=== PATIENT | female | born 1935 | race Caucasian/White ===

== ENCOUNTER → 2019-03-30 13:53 | Outpatient (CLI) | payer MEDICARE, OTHER, SELFPAY | PROVIDERS: PCP Nurse Practitioner; Visit Provider Family Medicine | DX: S31.109A Unspecified open wound of abdominal wall, unspecified quadrant without penetration into peritoneal cavity, initial encounter (principal); I10 Essential (primary) hypertension | CPT/HCPCS: 11042; 99203; 99212 ==

== ENCOUNTER → 2019-04-06 14:06 | Outpatient (CLI) | payer MEDICARE, OTHER, SELFPAY | PROVIDERS: PCP Nurse Practitioner; Visit Provider Family Medicine | DX: S31.105A Unspecified open wound of abdominal wall, periumbilic region without penetration into peritoneal cavity, initial encounter (principal); C56.2 Malignant neoplasm of left ovary | CPT/HCPCS: 11042 ==

== ENCOUNTER → 2019-04-07 11:47 | Outpatient (CLI) | payer MEDICARE, OTHER, SELFPAY ==
[2019-04-07 13:25] LABS: Thyroid Stimulating Hormone 3.76 uIU/mL (0.47-4.68)
== END ==
PROVIDERS: PCP Nurse Practitioner; Visit Provider Nurse Practitioner
DX: E03.9 Hypothyroidism, unspecified (principal)
CPT/HCPCS: 36415; 84443

== ENCOUNTER → 2019-04-14 14:24 | Outpatient (CLI) | payer MEDICARE, OTHER, SELFPAY | PROVIDERS: PCP Nurse Practitioner; Visit Provider Family Medicine | DX: S31.105A Unspecified open wound of abdominal wall, periumbilic region without penetration into peritoneal cavity, initial encounter (principal); C56.2 Malignant neoplasm of left ovary | CPT/HCPCS: 11042 ==

== ENCOUNTER → 2019-04-25 12:56 | Outpatient (CLI) | payer MEDICARE, OTHER, SELFPAY | PROVIDERS: PCP Nurse Practitioner; Visit Provider Family Medicine | DX: S31.109A Unspecified open wound of abdominal wall, unspecified quadrant without penetration into peritoneal cavity, initial encounter (principal); C56.2 Malignant neoplasm of left ovary | CPT/HCPCS: 99212 ==

== ENCOUNTER → 2019-05-22 11:04 | Outpatient (CLI) | payer MEDICARE, OTHER, SELFPAY ==
[2019-05-22 11:47] LABS: Add Manual Diff / Slide Review NO; Basophils Absolute Auto 100 /uL (0-100); Basophils Percent Auto 0.8 % (0-2); Eosinophils Absolute Auto 200 /uL (0-450); Eosinophils Percent Auto 2.6 % (2-4); Hematocrit 39.5 % (36-46); Hemoglobin 13.3 g/dL (12.0-16.0); Lymphocytes Absolute Auto 1100 /uL (1100-4500); Lymphocytes Percent Auto 16.5 % (25-40); Mean Corpuscular HGB Conc 33.7 % (30-36); Mean Corpuscular Hemoglobin 28.6 PG (26-34); Mean Corpuscular Volume 84.9 fL (80-100); Monocytes Absolute Auto 500 /uL (0-900); Monocytes Percent Auto 8.1 % (3-14); Neutrophils Absolute Auto 4800 /uL (1500-7000); Platelet Count 449 X10^3/uL (150-400); Red Blood Cell Count 4.65 X10^6/uL (4.0-5.2); Red Cell Distribution Width 14.1 % (11.6-14.8); White Blood Cell Count 6.7 X10^3/uL (4.5-11.0)
[2019-05-22 12:04] LABS: Cholesterol 184 mg/dL (140-199); HDL Cholesterol 55 mg/dL (40-60); LDL Cholesterol Calculated 91 mg/dL (<100); Triglycerides 192 mg/dL (35-150)
[2019-05-22 12:05] LABS: Alanine Aminotransferase 16 IU/L (9-52); Albumin 4.5 g/dL (3.5-5.0); Albumin Globulin Ratio 1.6 (1.0-2.8); Alkaline Phosphatase 61 U/L (38-126); Aspartate Aminotransferase 19 IU/L (14-36); BUN Creatinine Ratio 24.3 (6-22); Bilirubin Total 0.6 mg/dL (0.2-1.3); Blood Urea Nitrogen 17 mg/dL (7-17); Calcium 10.6 mg/dL (8.4-10.2); Carbon Dioxide 29 mmol/L (22-32); Chloride 102 mmol/L (98-107); Estimated Glomerular Filt Rate > 60.0 mL/min (>60); Globulin 2.8 g/dL (1.7-4.1); Glucose 96 mg/dL (80-110); HEMOLYSIS < 15 (0-50); Potassium 5.1 mmol/L (3.4-5.1); Sodium 140 mmol/L (137-145); Total Protein 7.3 g/dL (6.3-8.2)
[2019-05-22 12:36] LABS: Cancer Antigen 125 441 U/mL (0-35)
[2019-05-22 15:19] LABS: Creatinine Urine Random 46.4 mg/dL
[2019-05-22 15:24] LABS: Microalbumi Creatinin Ratio Ur 17.2 ug/mg CR (<30); Microalbumin Urine Random 0.8 mg/dL (0-1.6)
[2019-05-24 10:53] LABS: Fecal Immunochemical Test NOT DETECTED (NOT DETECTED)
== END ==
PROVIDERS: Internal Medicine Hematology & Oncology; PCP Nurse Practitioner; Visit Provider Nurse Practitioner
DX: E78.5 Hyperlipidemia, unspecified (principal); I10 Essential (primary) hypertension; Z12.11 Encounter for screening for malignant neoplasm of colon; C56.9 Malignant neoplasm of unspecified ovary
CPT/HCPCS: 36415; 80053; 80061; 82043; 82274; 82570; 85025; 86304

== ENCOUNTER → 2019-05-23 10:35 | Outpatient (CLI) | payer MEDICARE, OTHER, SELFPAY ==
--- NOTE | 2019-05-23 12:19 | DI.CT.S_ITS ---
PROCEDURE: CT CHEST ABD PEL W CON INDICATIONS: OVARIAN CANCER TECHNIQUE: After the administration of oral and intravenous contrast, 5 mm thick sections acquired from the lung apices to the symphysis. 5 mm coronal and sagittal reformats were performed, with additional 7 mm coronal MIP reformats through the lungs. For radiation dose reduction, the following was used: automated exposure control, adjustment of mA and/or kV according to patient size. COMPARISON: [facility], US, US ABDOMEN COMPLETE, 02/03/2019, 11:34. [facility], CT, CT CHEST WITH CONTRAST, 03/08/2019, 15:54. [facility], CT, CT ABDOMEN PELVIS WITH CONTRAST, 02/14/2019, 13:15. FINDINGS: Image quality: Excellent. CHEST: Lungs and pleura: There is a 1.5 x 2.3 cm irregular groundglass density in the right middle lobe, unchanged in size. There are subpleural scars in the lingula anteriorly likely secondary to post radiation change. No pleural effusions or pneumothorax. Central and peripheral airways appear patent and normal in caliber. Mediastinum: Heart size is normal. No pericardial effusion. No mediastinal or hilar adenopathy by size criteria. Thoracic aorta and central pulmonary arteries are normal in size. Esophagus is normal in caliber. A small hiatal hernia is present. Chest wall: No axillary or supraclavicular adenopathy by size criteria. Thyroid gland is normal. There is left mastectomy. ABDOMEN: Solid organs: Liver is normal in size and enhancement. The liver demonstrates a subtle nodular contour. Gallbladder is normal. Biliary system is non dilated. Pancreas enhances normally. Spleen contains multiple low density nodules. Several nodules are increased in size. For example the largest nodule measures 1.6 cm on the current examination, previously 1.3 cm. No adrenal nodules. Kidneys demonstrate normal size and enhancement, without hydronephrosis. Peritoneum and bowel: Bowel loops demonstrate normal wall thickness and caliber. No free air. There is a moderate amount of ascites, slightly decreased compared to 02/14/2019. There is a 6 cm omental nodule (series 2 image 83), new since the last exam. Nodes and vessels: No retroperitoneal or mesenteric adenopathy by size criteria. Aorta and inferior vena cava are normal in size. There is moderate to severe atherosclerosis. 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 Miscellaneous: No ventral hernias. There is a fluid collection in the lower anterior abdominal wall extending from the midline toward the right measuring 3.4 x 7.1 x 3.3 cm, most likely a postoperative seroma. There is a nerve stimulator in the right artery. PELVIS: Genitourinary: Post surgical changes with hysterectomy. No large pelvic mass has been surgically resected. Bladder wall thickness is normal. Miscellaneous: No inguinal hernias or adenopathy. Bones: No suspicious bony lesions. No vertebral body compression fractures. There are degenerative changes in thoracic and lumbar spine. IMPRESSION: 1. Interval hysterectomy and surgical resection of a large pelvic mass. 2. Persistent but slightly decrease in moderate amount of ascites. 3. A small new omental nodule is identified, suspicious for metastatic disease. 4. Multiple low density nodules are seen spleen. Several nodules appear increasing in size, concerning for metastatic disease. 5. A postoperative seroma is suspected in the right lower anterior abdominal wall. A differential diagnosis is a postoperative abscess. Recommend clinical correlation. 6. Stable 1.5 x 2.3 cm irregular groundglass density in the right middle lobe. Dictated by: Carlos Olivas M.D. on 05/23/2019 at 17:44 Approved by: Carlos Olivas M.D. on 05/23/2019 at 18:26
== END ==
PROVIDERS: PCP Nurse Practitioner; Visit Provider Internal Medicine Hematology & Oncology
DX: C56.9 Malignant neoplasm of unspecified ovary (principal); R18.8 Other ascites; D73.9 Disease of spleen, unspecified; R91.1 Solitary pulmonary nodule; K44.9 Diaphragmatic hernia without obstruction or gangrene; Z90.710 Acquired absence of both cervix and uterus; Z90.12 Acquired absence of left breast and nipple
CPT/HCPCS: 71260; 74177; Q9967

== ENCOUNTER 2019-05-30 08:56 | Day surgery (SDC) | payer MEDICARE, OTHER, SELFPAY ==
[2019-05-22 11:22] VITALS: BMI 25.2
[2019-05-30] VITALS (7 sets, daily range): BP systolic 111–133; BP diastolic 64–78; PULSE 58–62; RESP 11–18; TEMP 35.9–36.4; O2SAT 93–96; BMI 25.2
--- NOTE | 2019-05-30 | DI.RAD.S_ITS ---
PROCEDURE: XR CHEST 1V INDICATIONS: s/p port TECHNIQUE: One view of the chest was acquired. COMPARISON: [facility], CR, XR CHEST 2 VIEWS, 02/06/2019, 11:09. [facility], CT, CT CHEST ABD PEL W CON, 05/23/2019, 11:48. FINDINGS: Surgical changes and devices: Newly placed right-sided Port-A-Cath within the right IJ with the tip remaining at the middle third of the SVC. Lungs and pleura: No pneumothorax. Lungs are clear. No pleural effusion. Mediastinum: Mediastinal contours appear normal. Heart size is normal. Tortuous aorta. Bones and chest wall: No suspicious bony lesions. Overlying soft tissues appear unremarkable. IMPRESSION: New right Port-A-Cath with the tip terminating in the middle third of the SVC. No pneumothorax. Dictated by: Nikita Corrales M.D. on 05/30/2019 at 11:45 Approved by: Nikita Corrales M.D. on 05/30/2019 at 11:49
--- NOTE | 2019-05-30 09:08 | PM.PREOP ---
Pre-operative Note Interval Note History & Physical reviewed/Exam performed by Physician: Yes Changes to H&P: No
[2019-05-30] MEDS: LACTATED RINGERS 1,000 ML 42 ML IV (09:43)
[2019-05-30] MEDS: CEFAZOLIN 2 GM/100 ML FROZ.PIGGY IV (09:54)
--- NOTE | 2019-05-30 10:14 | SUR.OPER ---
Supine on padded OR bed, head on pillow, arm padded and tucked at side, legs uncrossed, safety belt at thigh, tape over blanket over lower legs .
[2019-05-30] MEDS: BUPIVACAINE 0.25% W/ EPI 30 ML VIAL INJ (10:23)
--- NOTE | 2019-05-30 10:38 | PM.OP.1 ---
Operative Date/Time/Diagnoses Date of procedure: 05/30/19 Time of procedure: 10:38 Pre-op diagnosis: Ovarian Cancer Post-op diagnosis: same Procedure & Clinicians Procedure: 1. Ultrasound guided access of Right Internal Jugular Vein 2. Right Internal Jugular Vein Port-a-cath Placement with fluoroscopic guidance and interpretation Same procedure as scheduled: Yes Indications: 84yo F with ovarian cancer and need for chemotherapy. All risks, benefits, and alternatives are discussed and pt wishes to proceed. Surgeon: Tania King Anesthesia Type: General Operative Notes Findings: flushes and draws readily Closure Type: primary Estimated Blood Loss (mL): 5 Procedure in detail: The patient was taken to the operating room and placed in the on the operating table in supine position. Anesthesia was induced without complications. The right neck and chest was prepped and draped in the usual sterile fashion. Using ultrasound guidance, the right internal jugular vein was accessed with an 18 gauge access needle. The guidewire was then placed through the needle and confirmed under fluoroscopic guidance. Using an 11 blade scalpel, a small incision was made in the skin over the needle and the needle was removed. At this point, we turned our attention to creation of a subcutaneous pocket for the port. This was done over the deltopectoral groove on the right chest. The catheter was then attached to the tunneling device and this was tunneled from the port site to the access site. The tunneling device was removed. The sheath and inner dilator were placed over the guidewire and advanced under fluoroscopic guidance. The wire was removed. The catheter was then placed in the sheath and advanced under fluoroscopic guidance until it appeared to sit near the atriocaval junction. The sheath was then removed. The catheter was then attached to the port and secured into place. Two 0-Ethibond sutures were placed through the deep subcutaneous tissues and the port sat nicely in place in the subcutaneous pocket. One last picture was taken with fluoroscopy which showed the catheter to be in good position above the atriocaval junction. Of note, a small hematoma was noted in the neck shortly after initial stick and was watched through the case with no enlargement; patient was still on her ASA and oozed from all cuts through the case. The catheter was checked to ensure that it flushes and draws readily. It was heparin-locked. 3-0 vicryl was used to re-approximate the deep subcutaneus tissues in an interrupted fashion. The skin was closed using 4-0 monocryl in a running subcuticular fashion. The area was cleaned and dried. Skin glue was placed over the incision and the access site. The patient tolerated the procedure well. The patient was awakened and taken to the PACU in stable condition. All counts were correct at the end of the procedure. Complications: none Condition: stable Disposition: PACU Plan for aftercare: CXR in PACU prior to discharge.
== END 2019-05-30 12:03 | disposition home or self-care (01) ==
PROVIDERS: PCP Nurse Practitioner; Visit Provider Surgery
PROC: (CPT 36561; principal; 2019-05-30 10:45)
DX: C56.9 Malignant neoplasm of unspecified ovary (principal); Z45.2 Encounter for adjustment and management of vascular access device
CPT/HCPCS: 36561; 71045; 76000; C1788; J0690; J1100; J2405; J2704; J3010

== ENCOUNTER → 2019-09-18 15:02 | Outpatient (CLI) | payer MEDICARE, OTHER, SELFPAY ==
[2019-09-25 09:06] LABS: Alanine Aminotransferase 17 IU/L (<35); Albumin 4.2 g/dL (3.5-5.0); Albumin Globulin Ratio 1.8 (1.0-2.8); Alkaline Phosphatase 60 U/L (38-126); Aspartate Aminotransferase 24 IU/L (14-36); Bilirubin Total 0.6 mg/dL (0.2-1.3); Blood Urea Nitrogen 20 mg/dL (7-17); Calcium 9.7 mg/dL (8.4-10.2); Carbon Dioxide 24 mmol/L (22-32); Chloride 102 mmol/L (98-107); Estimated Glomerular Filt Rate > 60.0 mL/min (>60); Globulin 2.4 g/dL (1.7-4.1); Glucose 148 mg/dL (80-110); HEMOLYSIS < 15 (0-50); Sodium 137 mmol/L (137-145); Total Protein 6.6 g/dL (6.3-8.2)
[2019-09-25 09:07] LABS: Add Manual Diff / Slide Review NO; Basophils Absolute Auto 0 /uL (0-100); Basophils Percent Auto 0.9 % (0-2); Eosinophils Absolute Auto 0 /uL (0-450); Eosinophils Percent Auto 0.4 % (2-4); Hematocrit 28.1 % (36-46); Hemoglobin 9.9 g/dL (12.0-16.0); Lymphocytes Absolute Auto 700 /uL (1100-4500); Lymphocytes Percent Auto 25.4 % (25-40); Mean Corpuscular HGB Conc 35.3 % (30-36); Mean Corpuscular Hemoglobin 33.8 PG (26-34); Mean Corpuscular Volume 95.7 fL (80-100); Monocytes Absolute Auto 200 /uL (0-900); Monocytes Percent Auto 7.3 % (3-14); Neutrophils Absolute Auto 1800 /uL (1500-7000); Platelet Count 183 X10^3/uL (150-400); Red Blood Cell Count 2.94 X10^6/uL (4.0-5.2); Red Cell Distribution Width 24.2 % (11.6-14.8); White Blood Cell Count 2.7 X10^3/uL (4.5-11.0)
[2019-09-25 10:12] LABS: Anisocytosis 3+; Polychromasia 2+
[2019-09-25 10:13] LABS: Macrocytosis 2+; Microcytosis 1+
[2019-09-25 10:14] LABS: Poikilocytosis 1+
== END ==
PROVIDERS: Internal Medicine Hematology & Oncology; PCP Nurse Practitioner; Visit Provider Obstetrics & Gynecology
DX: N89.8 Other specified noninflammatory disorders of vagina (principal); R82.90 Unspecified abnormal findings in urine
CPT/HCPCS: 80053; 85025; 87077; 87086; 87186

== ENCOUNTER 2021-02-15 10:18 | Emergency (ER) | payer MEDICARE, OTHER, SELFPAY ==
[2021-02-15] VITALS (15 sets, daily range): BP systolic 104–190; BP diastolic 63–99; PULSE 65–82; RESP 15–28; TEMP 36.4; O2SAT 88–98; BMI 28.3
--- NOTE | 2021-02-15 10:25 | DI.RAD.S_ITS ---
PROCEDURE: XR CHEST 1V INDICATIONS: chest pain TECHNIQUE: One view of the chest was acquired. COMPARISON: [facility], CR, XR CHEST 1V, 05/30/2019, 10:53. FINDINGS: Surgical changes and devices: Unchanged MediPort catheter with tip terminating in the caudal SVC. Lungs and pleura: Lungs are clear. No pleural effusions or pneumothorax. Mediastinum: Mediastinal contours appear normal. Calcification of the aortic knob. Heart size is normal. Bones and chest wall: No suspicious bony lesions. Multiple healed left-sided rib fractures. Degenerative changes of the shoulders and spine. Posttraumatic deformity of the left clavicle. Overlying soft tissues appear unremarkable. IMPRESSION: No acute cardiopulmonary findings. Dictated by: Arturo Laboy M.D. on 02/15/2021 at 10:02 Approved by: Arturo Laboy M.D. on 02/15/2021 at 10:04
--- NOTE | 2021-02-15 10:29 | ED_ITS ---
HPI - Chest Pain General Chief Complaint: Chest Pain Stated Complaint: chest pains Time Seen by Provider: 02/15/21 10:22 Source: patient Mode of arrival: Ambulatory Limitations: no limitations History of Present Illness HPI narrative: Patient is a 86-year-old female with history of breast cancer and left-sided mastectomy and hypertension presenting today with left-sided chest pain. She says it woke her from her sleep around 3:15 a.m. it is in her left armpit. She has sharp shooting pains that last for seconds but they have continued for about 30 minutes or more. She says it hurts when she moves her left arm. She denies shortness of breath. She currently has no pain now. She has never had anything like this in the past. MD complaint: chest pain Onset (ago): hour(s) Duration: intermittent Onset: during rest Pain location: left chest Severity: moderate Quality: sharp Pain radiation: none Relieving factors: nothing Exacerbating factors: nothing Related Data Home Medications Medication Instructions Recorded Confirmed aspirin 81 mg tablet,delayed 81 mg PO DAILY 04/07/19 05/02/20 release cholecalciferol (vitamin D3) 50 2,000 unit PO DAILY 04/07/19 05/02/20 mcg (2,000 unit) capsule vitamin E mixed 400 unit capsule 400 unit PO DAILY cap 04/07/19 05/02/20 diphenhydramine-acetaminophen 1 tab PO BEDTIME PRN 06/05/19 05/02/20 [Tylenol PM Extra Strength] Previous Rx's Medication Instructions Recorded levothyroxine 75 mcg tablet 75 mcg PO DAILY #90 tab 04/12/20 propranolol 60 mg tablet 60 mg PO BID #180 tab 04/12/20 amlodipine 10 mg tablet 5 mg PO DAILY #90 tab 04/18/20 Allergies Allergy/AdvReac Type Severity Reaction Status Date / Time codeine AdvReac Intermediate Nausea and Verified 02/15/21 10:25 Vomiting. Review of Systems Review of Systems ROS Unobtainable: All systems reviewed & are unremarkable except as noted in HPI and below Constitutional Constitutional: Denies chills, Denies fever(s), Denies lethargy and Denies weakness ENT Ears, Nose, Mouth, and Throat: Denies change in voice, Denies vertigo, Denies dizziness, Denies neck pain and Denies sore throat Cardiovascular Cardiovascular: Reports chest pain, Denies irregular heart rhythm, Denies lightheadedness, Denies palpitations, Denies dyspnea, Denies dyspnea on exertion and Denies orthopnea Respiratory Respiratory: Denies cough, Denies dyspnea, Denies dyspnea on exertion and Denies wheezing Gastrointestinal Gastrointestinal: Denies abdominal pain, Denies change in bowel habits, Denies diarrhea, Denies nausea and Denies vomiting Musculoskeletal Musculoskeletal: Denies back pain, Denies myalgias, Denies neck pain and Denies numbness Integumentary/Breasts Skin/Breast: Denies pruritus, Denies erythema, Denies rash and Denies wounds Neurologic Neurologic: Denies vertigo, Denies dizziness, Denies numbness and Denies weakness Endocrine Endocrine: Denies palpitations Allergic/Immunologic Allergic/Immunologic: Denies wheezing Patient History Medical History (Updated 02/15/21 @ 13:47 by Ryanne Tellez RN) Activity intolerance Benign familial tremor (~2009) Bilateral leg pain Breast cancer (~1986) Chicken pox Fatigue Fecal incontinence (~2015) FH: total abdominal hysterectomy and bilateral salpingo-oophorectomy (~03/10/19) Former smoker Hearing loss History of urinary incontinence (~2015) Hypothyroidism (~1989) Measles Mumps Ovarian cyst (~2000) Rubella Tinnitus Trigger finger, left little finger Vertigo Word finding difficulty Surgical History Anesthesia Cataracts, bilateral (~2017) History of ankle surgery (~1990) History of bladder surgery (~2016) History of mastectomy (~1986) History of surgery on right wrist (~2015) Ovarian cancer (~2018) Family History Father History of heart disease Hypertension Hyperlipidemia Mother No problems noted. Sister No problems noted. Grandfather No problems noted. Social History marital status: household members: spouse occupational status: previously employed Smoking Status: Former smoker Tobacco: How many years used: 3 second hand exposure: No alcohol intake: never substance use type: does not use Smoking Status: Former smoker alcohol intake frequency: 0-2 drinks per day Substance Use Type: does not use Exam Initial Vital Signs Initial Vital Signs: Vital Signs Temperature 97.6 F 04/03/21 10:20 Pulse Rate 69 02/15/21 10:20 Respiratory Rate 15 02/15/21 10:20 Blood Pressure 190/85 H 02/15/21 10:20 Pulse Oximetry 95 02/15/21 10:20 GENERAL: Alert well-appearing 86-year-old female and in no acute distress. HEENT: Head atraumatic,EOMI, pupils reactive, face symmetric, moist mucous membranes CARDIOVASCULAR: Regular rate and rhythm without murmurs, rubs or gallops. RESPIRATORY: Breath sounds equal bilaterally, no wheezes rales or rhonchi. ABDOMEN: Soft, nontender. Normoactive bowel sounds all 4 quadrants. No guarding or rebound. EXTREMITIES: Normal range of motion, no clubbing or edema. Neurovascularly intact NEUROLOGICAL: Alert and oriented x4.Normal gait and speech. Cranial nerves II through XII grossly intact. SKIN: Warm, dry, no laceration, no petechiae, no rashes or lesions. Course Orders Ordered: ED Orders 02/15/21 10:25 XR chest 1V Stat EKG-12 Lead Stat 02/15/21 10:30 Complete Blood Count AUTO DIFF Stat Comprehensive Metabolic Panel Stat Lipase Stat Partial Thromboplastin Time Stat Prothrombin Time INR Stat Troponin & CK Cardiac Panel Stat 02/15/21 12:30 Trop I [Troponin I] Stat Discontinued Medications Amlodipine Besylate (Amlodipine 5 Mg Tablet) 10 mg PO NOW ONE Stop: 02/15/21 10:50 Last Admin: 02/15/21 10:57 Dose: 10 mg Documented by: MERVIN Aspirin (Aspirin 81 Mg Chew Tab) 324 mg PO NOW ONE Stop: 02/15/21 10:57 Last Admin: 02/15/21 11:01 Dose: 324 mg Documented by: MERVIN Nitroglycerin (Nitroglycerin 0.4 Mg Sl Tab) 0.4 mg SL NOW ONE Stop: 02/15/21 10:57 Last Admin: 02/15/21 11:00 Dose: 0.4 mg Documented by: MERVIN Propranolol HCl (Propranolol 40 Mg Tablet) 60 mg PO NOW ONE Stop: 02/15/21 10:50 Last Admin: 02/15/21 10:57 Dose: 60 mg Documented by: MERVIN Vital Signs Vital signs: Vital Signs - 8 hr 02/15/21 11:00 02/15/21 11:10 02/15/21 11:21 Pulse Rate 71 82 78 Respiratory Rate 22 28 H Blood Pressure 150/90 H 123/80 120/65 Pulse Oximetry 94 91 96 02/15/21 11:30 02/15/21 11:40 02/15/21 11:50 Pulse Rate 73 73 70 Respiratory Rate 16 25 H 23 Blood Pressure 107/63 104/66 115/69 Pulse Oximetry 96 96 95 02/15/21 12:00 02/15/21 12:16 02/15/21 12:20 Pulse Rate 68 65 69 Respiratory Rate 19 22 Blood Pressure 123/78 132/91 H 117/73 Pulse Oximetry 96 93 97 02/15/21 12:30 02/15/21 12:40 02/15/21 12:50 Pulse Rate 65 66 65 Respiratory Rate 20 24 Blood Pressure 132/70 123/75 139/75 Pulse Oximetry 95 95 94 MDM - Chest Pain Lab Data Attestation: I reviewed the patient's lab results. Result diagrams: 02/15/21 10:30 02/15/21 10:30 Labs: Lab Results 02/15/21 02/15/21 02/15/21 Range/Units 10:30 10:30 10:30 WBC 5.7 (4.5-11.0) X10^3/uL RBC 4.90 (4.0-5.2) X10^6/uL Hgb 14.5 (12.0-16.0) g/dL Hct 42.8 (36-46) % MCV 87.5 (80-100) fL MCH 29.6 (26-34) PG MCHC 33.8 (30-36) % RDW 14.8 (11.6-14.8) % Plt Count 303 (150-400) X10^3/uL Neut % (Auto) 69.8 (50-75) % Lymph % (Auto) 16.2 L (25-40) % Sutter % (Auto) 9.9 (3-14) % Eos % (Auto) 3.2 (2-4) % Baso % (Auto) 0.9 (0-2) % Neut # (Auto) 4000 (5269-5335) /uL Lymph # (Auto) 900 L (4774-2889) /uL Sutter # (Auto) 600 (0-900) /uL Eos # (Auto) 200 (0-450) /uL Baso # (Auto) 100 (0-100) /uL PT 12.3 (10.1-12.7) SECONDS INR 1.1 (0.9-1.3) APTT 39 H (26.4-36.2) SECONDS Sodium 138 (137-145) mmol/L Potassium 4.5 (3.4-5.1) mmol/L Chloride 105 (98-107) mmol/L Carbon Dioxide 26 (22-32) mmol/L BUN 17 (7-17) mg/dL Creatinine 0.66 (0.52-1.04) mg/dL Estimated GFR > 60.0 (>60) mL/min BUN/Creatinine Ratio 25.8 H (6-22) Glucose 114 H (80-110) mg/dL Calcium 10.6 H (8.4-10.2) mg/dL Total Bilirubin 0.7 (0.2-1.3) mg/dL AST 28 (14-36) IU/L ALT 20 (<35) IU/L Alkaline Phosphatase 66 (38-126) U/L Total Creatine Kinase 83 (30-135) U/L CK-MB (CK-2) TNP CK-MB (CK-2) Rel Index TNP Troponin I < 0.012 (0.01-0.034) ng/mL Total Protein 7.7 (6.3-8.2) g/dL Albumin 4.6 (3.5-5.0) g/dL Globulin 3.1 (1.7-4.1) g/dL Albumin/Globulin Ratio 1.5 (1.0-2.8) Lipase 78 (23-300) U/L // Range/Units 12:30 WBC (4.5-11.0) X10^3/uL RBC (4.0-5.2) X10^6/uL Hgb (12.0-16.0) g/dL Hct (36-46) % MCV (80-100) fL MCH (26-34) PG MCHC (30-36) % RDW (11.6-14.8) % Plt Count (150-400) X10^3/uL Neut % (Auto) (50-75) % Lymph % (Auto) (25-40) % Sutter % (Auto) (3-14) % Eos % (Auto) (2-4) % Baso % (Auto) (0-2) % Neut # (Auto) (6403-5241) /uL Lymph # (Auto) (9291-2631) /uL Sutter # (Auto) (0-900) /uL Eos # (Auto) (0-450) /uL Baso # (Auto) (0-100) /uL PT (10.1-12.7) SECONDS INR (0.9-1.3) APTT (26.4-36.2) SECONDS Sodium (137-145) mmol/L Potassium (3.4-5.1) mmol/L Chloride (98-107) mmol/L Carbon Dioxide (22-32) mmol/L BUN (7-17) mg/dL Creatinine (0.52-1.04) mg/dL Estimated GFR (>60) mL/min BUN/Creatinine Ratio (6-22) Glucose (80-110) mg/dL Calcium (8.4-10.2) mg/dL Total Bilirubin (0.2-1.3) mg/dL AST (14-36) IU/L ALT (<35) IU/L Alkaline Phosphatase (38-126) U/L Total Creatine Kinase (30-135) U/L CK-MB (CK-2) CK-MB (CK-2) Rel Index Troponin I < 0.012 (0.01-0.034) ng/mL Total Protein (6.3-8.2) g/dL Albumin (3.5-5.0) g/dL Globulin (1.7-4.1) g/dL Albumin/Globulin Ratio (1.0-2.8) Lipase (23-300) U/L Imaging Data Chest x-ray: Radiologist's Impression: PROCEDURE: XR CHEST 1V INDICATIONS: chest pain TECHNIQUE: One view of the chest was acquired. COMPARISON: [facility], CR, XR CHEST 1V, 05/30/2019, 10:53. FINDINGS: Surgical changes and devices: Unchanged MediPort catheter with tip terminating in the caudal SVC. Lungs and pleura: Lungs are clear. No pleural effusions or pneumothorax. Mediastinum: Mediastinal contours appear normal. Calcification of the aortic knob. Heart size is normal. Bones and chest wall: No suspicious bony lesions. Multiple healed left-sided rib fractures. Degenerative changes of the shoulders and spine. Posttraumatic deformity of the left clavicle. Overlying soft tissues appear unremarkable. IMPRESSION: No acute cardiopulmonary findings. Dictated by: Arturo Laboy M.D. on 02/15/2021 at 10:02 ECG Data Attestation: I personally reviewed and interpreted this ECG as follows: Prior ECG tracings: not available for review Interpretation: Normal sinus rhythm rate 62 p.r. interval 180 QRS [address] changes or T-wave inversions EKG 2. Sinus rhythm rate 63 p.r. interval [address] changes or T-wave inversions similar to previous EKG MDM Narrative Medical decision making narrative: Patient's pain is sharp stabbing in nature worse with arm movement is not consistent with cardiac pain. At this time she has 2-troponins EKGs are reassuring. I recommend outpatient follow-up and possible stress test. Discharge Plan Departure Patient Disposition: Home Clinical Impression: Atypical chest pain, Activity intolerance Instructions: DI for Atypical Chest Pain Activity Restrictions/Additional Instructions: *You have been diagnosed with atypical chest pain *What to do: At this time you may require further cardiac testing with her primary care provider but you do not need to stay in the hospital to have this done. His however if her pain changes or worsens at any time please return to the emergency department *Continue to take medications as directed *Follow up with your primary care provider in 2-3 days *Return to ER if you should have increasing chest pain shortness of breath or any new, worsening or concerning symptoms Prescriptions: No Action propranolol 60 mg tablet 60 mg PO BID Qty: 180 RF: 3 levothyroxine 75 mcg tablet 75 mcg PO DAILY Qty: 90 RF: 3 aspirin 81 mg tablet,delayed release (DR/EC) 81 mg PO DAILY RF: 0 cholecalciferol (vitamin D3) 2,000 unit capsule 2,000 unit PO DAILY RF: 0 vitamin E mixed 400 unit capsule 400 unit PO DAILY RF: 0 amlodipine 10 mg tablet 5 mg PO DAILY Qty: 90 RF: 3 diphenhydramine-acetaminophen [Tylenol PM Extra Strength] 25-500 mg Tablet 1 tab PO BEDTIME PRN (Reason: Pain (Scale Score 1-3)) RF: 0 Referrals: Ayanna Otero ARNP [Primary Care Provider] -
[2021-02-15 10:40] LABS: Add Manual Diff / Slide Review NO; Basophils Absolute Auto 100 /uL (0-100); Basophils Percent Auto 0.9 % (0-2); Eosinophils Absolute Auto 200 /uL (0-450); Eosinophils Percent Auto 3.2 % (2-4); Hematocrit 42.8 % (36-46); Hemoglobin 14.5 g/dL (12.0-16.0); Lymphocytes Absolute Auto 900 /uL (1100-4500); Lymphocytes Percent Auto 16.2 % (25-40); Mean Corpuscular HGB Conc 33.8 % (30-36); Mean Corpuscular Hemoglobin 29.6 PG (26-34); Mean Corpuscular Volume 87.5 fL (80-100); Monocytes Absolute Auto 600 /uL (0-900); Monocytes Percent Auto 9.9 % (3-14); Neutrophils Absolute Auto 4000 /uL (1500-7000); Neutrophils Percent Auto 69.8 % (50-75); Platelet Count 303 X10^3/uL (150-400); Red Cell Distribution Width 14.8 % (11.6-14.8); White Blood Cell Count 5.7 X10^3/uL (4.5-11.0)
[2021-02-15 10:48] LABS: INR 1.1 (0.9-1.3); Prothrombin Time 12.3 SECONDS (10.1-12.7)
[2021-02-15 10:51] LABS: Alanine Aminotransferase 20 IU/L (<35); Albumin 4.6 g/dL (3.5-5.0); Albumin Globulin Ratio 1.5 (1.0-2.8); Alkaline Phosphatase 66 U/L (38-126); Aspartate Aminotransferase 28 IU/L (14-36); BUN Creatinine Ratio 25.8 (6-22); Bilirubin Total 0.7 mg/dL (0.2-1.3); Blood Urea Nitrogen 17 mg/dL (7-17); Calcium 10.6 mg/dL (8.4-10.2); Carbon Dioxide 26 mmol/L (22-32); Chloride 105 mmol/L (98-107); Creatine Kinase 83 U/L (30-135); Estimated Glomerular Filt Rate > 60.0 mL/min (>60); Globulin 3.1 g/dL (1.7-4.1); Glucose 114 mg/dL (80-110); HEMOLYSIS 29 (0-50); Lipase 78 U/L (23-300); PTT Partial Thromboplastin Tim 39 SECONDS (26.4-36.2); Potassium 4.5 mmol/L (3.4-5.1); Sodium 138 mmol/L (137-145); Total Protein 7.7 g/dL (6.3-8.2)
[2021-02-15] MEDS: PROPRANOLOL 40 MG TABLET 60 MG PO (10:57)
[2021-02-15] MEDS: AMLODIPINE 5 MG TABLET 10 MG PO (10:57)
[2021-02-15] MEDS: NITROGLYCERIN 0.4 MG SL TAB SL (11:00)
[2021-02-15] MEDS: ASPIRIN 81 MG CHEW TAB 324 MG PO (11:01)
[2021-02-15 11:02] LABS: Troponin I < 0.012 ng/mL (0.01-0.034)
[2021-02-15 13:05] LABS: Troponin I < 0.012 ng/mL (0.01-0.034)
== END 2021-02-15 13:33 | disposition home or self-care (01) ==
PROVIDERS: Emergency Provider Emergency Medicine; Family Provider Nurse Practitioner; PCP Nurse Practitioner
DX: R07.89 Other chest pain (principal); Z85.3 Personal history of malignant neoplasm of breast; Z90.12 Acquired absence of left breast and nipple
CPT/HCPCS: 36415; 71045; 80053; 82550; 83690; 84484; 85025; 85610; 85730; 93005; 99284; 99285

== ENCOUNTER 2022-01-22 13:02 | Emergency (ER) | payer MEDICARE, OTHER, SELFPAY ==
[2022-01-22] VITALS (11 sets, daily range): BP systolic 152–199; BP diastolic 67–102; PULSE 77–85; RESP 14–20; TEMP 36.3; O2SAT 92–96; BMI 28.3
--- NOTE | 2022-01-22 13:09 | DI.RAD.S_ITS ---
PROCEDURE: XR CHEST 1V INDICATIONS: chest pain TECHNIQUE: One view of the chest was acquired. COMPARISON: [facility], CR, XR CHEST 1V, 05/30/2019, 10:53. [facility], CR, XR CHEST 1V, 02/15/2021, 10:37. FINDINGS: Surgical changes and devices: None. Lungs and pleura: No pleural effusions or pneumothorax. There is elevation of the left hemidiaphragm and left basilar atelectasis. Mediastinum: Mediastinal contours appear normal. Heart size is enlarged. The aorta has atherosclerotic calcifications. Bones and chest wall: No suspicious bony lesions. Overlying soft tissues appear unremarkable. IMPRESSION: Left basilar atelectasis and elevation of the left hemidiaphragm. Dictated by: Julio César Astudillo M.D. on 01/22/2022 at 14:39 Approved by: Julio César Astudillo M.D. on 01/22/2022 at 14:41
[2022-01-22 13:38] LABS: Add Manual Diff / Slide Review NO; Basophils Absolute Auto 100 /uL (0-100); Basophils Percent Auto 0.7 % (0-2); Eosinophils Absolute Auto 100 /uL (0-450); Eosinophils Percent Auto 1.2 % (2-4); Hematocrit 43.2 % (36-46); Hemoglobin 14.5 g/dL (12.0-16.0); Lymphocytes Absolute Auto 700 /uL (1100-4500); Lymphocytes Percent Auto 8.3 % (25-40); Mean Corpuscular HGB Conc 33.5 % (30-36); Mean Corpuscular Hemoglobin 29.5 PG (26-34); Mean Corpuscular Volume 88.2 fL (80-100); Monocytes Absolute Auto 500 /uL (0-900); Monocytes Percent Auto 6.4 % (3-14); Neutrophils Absolute Auto 6900 /uL (1500-7000); Neutrophils Percent Auto 83.4 % (50-75); Platelet Count 372 X10^3/uL (150-400); Red Cell Distribution Width 14.3 % (11.6-14.8); White Blood Cell Count 8.3 X10^3/uL (4.5-11.0)
[2022-01-22 13:44] LABS: INR 1.1 (0.9-1.3)
[2022-01-22 13:47] LABS: PTT Partial Thromboplastin Tim 36 SECONDS (26.4-36.2)
[2022-01-22 14:21] LABS: Alanine Aminotransferase 20 IU/L (<35); Albumin 4.5 g/dL (3.5-5.0); Albumin Globulin Ratio 1.4 (1.0-2.8); Alkaline Phosphatase 61 U/L (38-126); Aspartate Aminotransferase 33 IU/L (14-36); BUN Creatinine Ratio 27.8 (6-22); Bilirubin Total 0.8 mg/dL (0.2-1.3); Blood Urea Nitrogen 20 mg/dL (7-17); Calcium 9.9 mg/dL (8.4-10.2); Carbon Dioxide 29 mmol/L (22-32); Chloride 104 mmol/L (98-107); Creatine Kinase 136 U/L (30-135); Estimated Glomerular Filt Rate > 60.0 mL/min (>60); Globulin 3.3 g/dL (1.7-4.1); Glucose 132 mg/dL (80-110); HEMOLYSIS 40 (0-50); Lipase 95 U/L (23-300); Magnesium 2.2 mg/dL (1.6-2.3); Potassium 4.2 mmol/L (3.4-5.1); Sodium 138 mmol/L (137-145); Total Protein 7.8 g/dL (6.3-8.2)
[2022-01-22 14:32] LABS: Troponin I < 0.012 ng/mL (0.01-0.034)
[2022-01-22 14:36] LABS: CKMB % Relative Index 2.5 % (1.5-5.0); Creatine Kinase MB 3.45 ng/mL (<2.37)
--- NOTE | 2022-01-22 16:54 | ED_ITS ---
HPI - Chest Pain General Chief Complaint: Chest Pain Stated Complaint: Chest pains Time Seen by Provider: 01/22/22 16:50 Source: patient Mode of arrival: Wheelchair Limitations: no limitations History of Present Illness HPI narrative: Patient is an 87-year-old female with history of hypertension presenting today with chest pain. It is on the left side of her chest it definitely seems to be worse with position. She has sharp shooting lightening bolt like pains. She denies shortness of breath she has no palpitations. It is quite painful. Does not go anywhere there is no radiation. She actually says she tripped and fell 2 weeks ago. She tripped over a cord is in the living room and landed on the carpet. She was not evaluated at that time. She was a little sore for a few days after but she recovered okay. Today suddenly she started having the sharp shooting pains. The pains seem worse with any type of movement but they do come at rest as. Mostly while sitting up and lying back down. She has no known history of coronary artery disease. Related Data Home Medications Medication Instructions Recorded Confirmed aspirin 81 mg tablet,delayed 81 mg PO DAILY 04/07/19 08/20/21 release cholecalciferol (vitamin D3) 50 2,000 unit PO DAILY 04/07/19 08/20/21 mcg (2,000 unit) capsule vitamin E mixed 400 unit capsule 400 unit PO DAILY cap 04/07/19 08/20/21 diphenhydramine 25 1 tab PO BEDTIME PRN 06/05/19 08/20/21 mg-acetaminophen 500 mg tablet (Tylenol PM Extra Strength) acetaminophen 500 mg tablet 1,000 mg PO Q6H PRN tab 08/20/21 08/20/21 (Tylenol Extra Strength) Previous Rx's Medication Instructions Recorded amlodipine 10 mg tablet See Rx Instructions .ROUTE 07/22/21 .COMPLEX #90 tab levothyroxine 75 mcg tablet See Rx Instructions .ROUTE 07/22/21 .COMPLEX #90 tab propranolol 60 mg tablet See Rx Instructions .ROUTE 07/22/21 .COMPLEX #180 tab meloxicam 7.5 mg tablet 7.5 mg PO DAILY #90 tab 09/17/21 cephalexin 500 mg capsule 500 mg PO BID 7 Days #14 cap 01/22/22 Allergies Allergy/AdvReac Type Severity Reaction Status Date / Time codeine AdvReac Intermediate Nausea and Verified 01/22/22 13:06 Vomiting. Review of Systems Review of Systems Narrative: GENERAL: Denies chills, fatigue, malaise, fever, sweats, travel HEENT: Denies sinus pain, ear pain, sore throat, difficulty swallowing, neck pain RESPIRATORY: Denies dyspnea, cough, wheezing, hemoptysis, sputum. CARDIOVASCULAR: See HPI GASTROINTESTINAL: Denies nausea, vomiting, abdominal pain, diarrhea, constipation, melena. : Denies dysuria, frequency, incontinence, hematuria, urinary retention, flank pain. MUSCULOSKELETAL: Denies weakness, joint pain, or bony pain SKIN: No rash, no erythema, no pruritus NEUROLOGIC: Denies weakness, dizziness, headache, numbness, change in speech, confusion PSYCHIATRIC: No concerning psychosocial issues. 12 point review of systems is negative except for those stated above and HPI Patient History Medical History Activity intolerance Benign familial tremor (~2009) Bilateral leg pain Breast cancer (~1986) Chicken pox Fatigue Fecal incontinence (~2015) FH: total abdominal hysterectomy and bilateral salpingo-oophorectomy (~03/10/19) Former smoker Hearing loss History of urinary incontinence (~2015) Hypothyroidism (~1989) Measles Mumps Ovarian cyst (~2000) Rubella Sacral nerve stimulator present Tinnitus Trigger finger, left little finger Vertigo Word finding difficulty Surgical History Anesthesia Cataracts, bilateral (~2017) History of ankle surgery (~1990) History of bladder surgery (~2016) History of mastectomy (~1986) History of surgery on right wrist (~2015) Ovarian cancer (~2018) Family History Father History of heart disease Hypertension Hyperlipidemia Mother No problems noted. Sister No problems noted. Grandfather No problems noted. Social History marital status: household members: spouse occupational status: previously employed Smoking Status: Former smoker Tobacco: How many years used: 3 second hand exposure: No alcohol intake: never substance use type: does not use Smoking Status: Former smoker alcohol intake frequency: 0-2 drinks per day Substance Use Type: does not use Exam Initial Vital Signs Initial Vital Signs: Vital Signs Temperature 97.3 F L 01/22/22 13:06 Pulse Rate 77 01/22/22 13:06 Respiratory Rate 16 01/22/22 13:06 Blood Pressure 180/79 H 01/22/22 13:06 Pulse Oximetry 92 01/22/22 13:06 GENERAL: Alert well-appearing 87-year-old female she does appear to be in pain HEENT: Head atraumatic,EOMI, pupils reactive, face symmetric, [moist] mucous membranes CARDIOVASCULAR: Regular rate and rhythm without murmurs, rubs or gallops. RESPIRATORY: Breath sounds equal bilaterally, no wheezes rales or rhonchi. Pain in sternum and left side tender to touch ABDOMEN: Soft, nontender. Normoactive bowel sounds all 4 quadrants. No guarding or rebound. EXTREMITIES: Normal range of motion, no clubbing or edema. Neurovascularly intact NEUROLOGICAL: Alert and oriented x4.Normal gait and speech. SKIN: Warm, dry, no laceration, no petechiae, no rashes or lesions. Course Orders Ordered: Discontinued Medications Ketorolac Tromethamine (Ketorolac 30 Mg/Ml Vial) 15 mg IV NOW ONE Stop: 01/22/22 17:08 Last Admin: 01/22/22 17:16 Dose: 15 mg Documented by: YANNI Vital Signs Vital signs: Vital Signs - 8 hr 01/22/22 13:06 01/22/22 15:20 01/22/22 15:30 Temperature 97.3 F L Pulse Rate 77 79 79 Respiratory Rate 16 15 14 Blood Pressure 180/79 H 176/84 H 157/81 H Pulse Oximetry 92 95 95 01/22/22 16:00 01/22/22 16:30 01/22/22 17:00 Temperature Pulse Rate 79 80 83 Respiratory Rate 17 20 Blood Pressure 159/102 H 152/81 H Pulse Oximetry 95 94 94 01/22/22 17:08 01/22/22 17:09 01/22/22 17:31 Temperature Pulse Rate 83 81 82 Respiratory Rate Blood Pressure 199/92 H 178/86 H Pulse Oximetry 95 96 96 01/22/22 18:00 01/22/22 18:30 Temperature Pulse Rate 84 85 Respiratory Rate 18 Blood Pressure 170/67 H Pulse Oximetry 92 93 MDM - Chest Pain Lab Data Result diagrams: 01/22/22 13:15 01/22/22 13:15 Labs: Lab Results 01/22/22 01/22/22 01/22/22 Range/Units 13:15 13:15 13:15 WBC 8.3 (4.5-11.0) X10^3/uL RBC 4.90 (4.0-5.2) X10^6/uL Hgb 14.5 (12.0-16.0) g/dL Hct 43.2 (36-46) % MCV 88.2 (80-100) fL MCH 29.5 (26-34) PG MCHC 33.5 (30-36) % RDW 14.3 (11.6-14.8) % Plt Count 372 (150-400) X10^3/uL Neut % (Auto) 83.4 H (50-75) % Lymph % (Auto) 8.3 L (25-40) % [place] % (Auto) 6.4 (3-14) % Eos % (Auto) 1.2 L (2-4) % Baso % (Auto) 0.7 (0-2) % Neut # (Auto) 6900 (2224-1554) /uL Lymph # (Auto) 700 L (8012-8972) /uL [place] # (Auto) 500 (0-900) /uL Eos # (Auto) 100 (0-450) /uL Baso # (Auto) 100 (0-100) /uL PT 12.0 (10.1-12.7) SECONDS INR 1.1 (0.9-1.3) APTT 36 (26.4-36.2) SECONDS Sodium 138 (137-145) mmol/L Potassium 4.2 (3.4-5.1) mmol/L Chloride 104 (98-107) mmol/L Carbon Dioxide 29 (22-32) mmol/L BUN 20 H (7-17) mg/dL Creatinine 0.72 (0.52-1.04) mg/dL Estimated GFR > 60.0 (>60) mL/min BUN/Creatinine Ratio 27.8 H (6-22) Glucose 132 H (80-110) mg/dL Calcium 9.9 (8.4-10.2) mg/dL Magnesium 2.2 (1.6-2.3) mg/dL Total Bilirubin 0.8 (0.2-1.3) mg/dL AST 33 (14-36) IU/L ALT 20 (<35) IU/L Alkaline Phosphatase 61 (38-126) U/L Total Creatine Kinase 136 H (30-135) U/L CK-MB (CK-2) 3.45 H (<2.37) ng/mL CK-MB (CK-2) Rel Index 2.5 (1.5-5.0) % Troponin I < 0.012 (0.01-0.034) ng/mL Total Protein 7.8 (6.3-8.2) g/dL Albumin 4.5 (3.5-5.0) g/dL Globulin 3.3 (1.7-4.1) g/dL Albumin/Globulin Ratio 1.4 (1.0-2.8) Lipase 95 (23-300) U/L Urine Color Urine Appearance Urine pH (4.5-8.0) Ur Specific [place] (1.000-1.035) Urine Protein (Negative) Urine Glucose (UA) (Negative) g/dL Urine Ketones (NEGATIVE) Urine Occult Blood (Negative) Urine Nitrate (Negative) Urine Bilirubin (NEGATIVE) Urine Urobilinogen (0.2) E.U./dL Ur Leukocyte Esterase (NEGATIVE) Urine RBC (0-5/HPF) Urine WBC (0-5/HPF) Ur Squamous Epith Cells (0-5/HPF) Ur Transition Epith Cell (0-5/HPF) Urine Bacteria (None) Ur Culture Indicated? 01/22/22 01/22/22 Range/Units 16:41 17:09 WBC (4.5-11.0) X10^3/uL RBC (4.0-5.2) X10^6/uL Hgb (12.0-16.0) g/dL Hct (36-46) % MCV (80-100) fL MCH (26-34) PG MCHC (30-36) % RDW (11.6-14.8) % Plt Count (150-400) X10^3/uL Neut % (Auto) (50-75) % Lymph % (Auto) (25-40) % [place] % (Auto) (3-14) % Eos % (Auto) (2-4) % Baso % (Auto) (0-2) % Neut # (Auto) (3693-3505) /uL Lymph # (Auto) (9741-8415) /uL [place] # (Auto) (0-900) /uL Eos # (Auto) (0-450) /uL Baso # (Auto) (0-100) /uL PT (10.1-12.7) SECONDS INR (0.9-1.3) APTT (26.4-36.2) SECONDS Sodium (137-145) mmol/L Potassium (3.4-5.1) mmol/L Chloride (98-107) mmol/L Carbon Dioxide (22-32) mmol/L BUN (7-17) mg/dL Creatinine (0.52-1.04) mg/dL Estimated GFR (>60) mL/min BUN/Creatinine Ratio (6-22) Glucose (80-110) mg/dL Calcium (8.4-10.2) mg/dL Magnesium (1.6-2.3) mg/dL Total Bilirubin (0.2-1.3) mg/dL AST (14-36) IU/L ALT (<35) IU/L Alkaline Phosphatase (38-126) U/L Total Creatine Kinase (30-135) U/L CK-MB (CK-2) (<2.37) ng/mL CK-MB (CK-2) Rel Index (1.5-5.0) % Troponin I < 0.012 (0.01-0.034) ng/mL Total Protein (6.3-8.2) g/dL Albumin (3.5-5.0) g/dL Globulin (1.7-4.1) g/dL Albumin/Globulin Ratio (1.0-2.8) Lipase (23-300) U/L Urine Color Yellow Urine Appearance Sl cloudy Urine pH 7.0 (4.5-8.0) Ur Specific [place] 1.010 (1.000-1.035) Urine Protein Negative (Negative) Urine Glucose (UA) Negative (Negative) g/dL Urine Ketones 1+ H (NEGATIVE) Urine Occult Blood Trace-intact (Negative) Urine Nitrate Positive H (Negative) Urine Bilirubin Negative (NEGATIVE) Urine Urobilinogen 0.2 (0.2) E.U./dL Ur Leukocyte Esterase Trace H (NEGATIVE) Urine RBC 1-5/hpf (0-5/HPF) Urine WBC 10-30/hpf H (0-5/HPF) Ur Squamous Epith Cells 1-5 /hpf (0-5/HPF) Ur Transition Epith Cell 1-5/hpf (0-5/HPF) Urine Bacteria Many (>30) H (None) Ur Culture Indicated? Specimen cultured Imaging Data Chest x-ray: Radiologist's Impression: PROCEDURE:? XR CHEST 1V ? INDICATIONS:? chest pain ? TECHNIQUE:? One view of the chest was acquired.? ? COMPARISON:? [facility], CR, XR CHEST 1V, 05/30/2019, 10:53.? [facility], CR, XR CHEST 1V, 02/15/2021, 10:37. ? FINDINGS:? ? Surgical changes and devices:? None.? ? Lungs and pleura:? No pleural effusions or pneumothorax.? There is elevation of the left hemidiaphragm and left basilar atelectasis. ? Mediastinum:? Mediastinal contours appear normal.? Heart size is enlarged.? The aorta has atherosclerotic calcifications. ? Bones and chest wall:? No suspicious bony lesions.? Overlying soft tissues appear unremarkable.? ? IMPRESSION: ? Left basilar atelectasis and elevation of the left hemidiaphragm. ? Dictated by: Julio César Astudillo M.D. on 01/22/2022 at 14:39 ECG Data Interpretation: Normal sinus rhythm rate 76 MS interval 182 QRS [address] changes MDM Narrative Medical decision making narrative: Patient has 2- troponins. Pain does seem to be is worse with movement she actually says it feels better when she splints it. His rib x-ray is negatives. She is given Toradol for pain. She is also found of a UTI with nitrates. She is given antibiotics really has no symptoms from that. She clearly is not septic. Overall patient is feeling better and feels ready and able to go home. Discharge Plan Departure Patient Disposition: Home Clinical Impression: Acute UTI, Chest pain Instructions: Urinary Tract Infection, DI for Chest Pain Activity Restrictions/Additional Instructions: *You have been diagnosed with UTI atypical chest pain *What to do: At this time your found to have a bladder infection which is unlikely causing her chest pain. Her chest pain is not from having heart attack. Try taking medication to see if it helps with her pain. *Continue to take medications as directed Keflex 500 mg twice a day for 5 days Tylenol 100mg every 6 hours if needed for pain Ibuprofen 600 mg every 6 hours if needed for pain *Follow up with your primary care provider in 2-3 days or call [phone] *Return to ER if you should have increasing pain of breath or any new, worsening or concerning symptoms Prescriptions: New cephalexin 500 mg capsule 500 mg PO BID 7 Days Qty: 14 0RF No Action amlodipine 10 mg tablet See Rx Instructions .ROUTE .COMPLEX Qty: 90 3RF Dose Instruction: TAKE 1 TABLET DAILY FOR HYPERTENSION Rx Instructions: TAKE 1 TABLET DAILY FOR HYPERTENSION propranolol 60 mg tablet See Rx Instructions .ROUTE .COMPLEX Qty: 180 3RF Dose Instruction: TAKE 1 TABLET TWICE A DAY FOR HYPERTENSION AND ESSENTIAL TREMOR Rx Instructions: TAKE 1 TABLET TWICE A DAY FOR HYPERTENSION AND ESSENTIAL TREMOR levothyroxine 75 mcg tablet See Rx Instructions .ROUTE .COMPLEX Qty: 90 3RF Dose Instruction: TAKE 1 TABLET DAILY Rx Instructions: TAKE 1 TABLET DAILY aspirin 81 mg tablet,delayed release (DR/EC) 81 mg PO DAILY 0RF cholecalciferol (vitamin D3) 2,000 unit capsule 2,000 unit PO DAILY 0RF vitamin E mixed 400 unit capsule 400 unit PO DAILY 0RF meloxicam 7.5 mg tablet 7.5 mg PO DAILY Qty: 90 3RF Rx Instructions: Take 1 tab daily for pain relief. acetaminophen [Tylenol Extra Strength] 500 mg tablet 1,000 mg PO Q6H PRN0RF diphenhydramine-acetaminophen [Tylenol PM Extra Strength] 25-500 mg Tablet 1 tab PO BEDTIME PRN (Reason: Pain (Scale Score 1-3)) 0RF Referrals: Ayanna Otero ARNP [Primary Care Provider] -
[2022-01-22 17:00] LABS: Appearance Urine UA SL CLOUDY; Bilirubin Urine UA NEGATIVE (NEGATIVE); Color Urine UA YELLOW; Glucose Urine UA NEGATIVE (Negative); Ketones Urine UA 1+ (NEGATIVE); Leukocyte Esterase Urine UA TRACE (NEGATIVE); Nitrite Urine UA POSITIVE (Negative); Occult Blood Urine UA TRACE-INTACT (Negative); Protein Urine UA NEGATIVE (Negative); Urobilinogen Urine UA 0.2 E.U./dL (0.2)
--- NOTE | 2022-01-22 17:07 | DI.RAD.S_ITS ---
PROCEDURE: XR RIBS LT 2V INDICATIONS: fall 2 weeks ago rib pain TECHNIQUE: 2 views of the left ribs were acquired. COMPARISON: None. FINDINGS: Study limited by osteopenia and motion artifact Surgical changes and devices: None. Bones and chest wall: Old healed right-sided rib fractures noted. No acute fractures or dislocations. No suspicious bony lesions. Overlying soft tissues appear unremarkable. Lungs and pleura: The visualized lung appears clear. No pleural effusions or pneumothorax are visible. IMPRESSION: No acute fracture or pneumothorax. Old healed right-sided rib fractures noted. Approved by: Moses Solomon M.D. on 01/22/2022 at 17:17
[2022-01-22 17:13] LABS: Bacteria Urine Many (>30); Culture Indicated Urine Specimen Cultured; RBC Urine 1-5/HPF (0-5/HPF); Squamous Epithelial Cell Urine 1-5 /HPF (0-5/HPF); Transitional Epi Cells Urine 1-5/HPF (0-5/HPF); WBC Urine 10-30/HPF (0-5/HPF)
[2022-01-22] MEDS: KETOROLAC 30 MG/ML VIAL 15 MG IV (17:16)
[2022-01-22 17:42] LABS: Troponin I < 0.012 ng/mL (0.01-0.034)
== END 2022-01-22 18:45 | disposition home or self-care (01) ==
PROVIDERS: Emergency Provider Emergency Medicine; Family Provider Nurse Practitioner; PCP Nurse Practitioner
DX: N39.0 Urinary tract infection, site not specified (principal); R07.9 Chest pain, unspecified; Z87.891 Personal history of nicotine dependence
CPT/HCPCS: 36415; 71045; 71100; 80053; 81001; 82550; 82553; 83690; 83735; 84484; 85025; 85610; 85730; 87077; 87086; 87186; 93005; 93010; 96374; 99284; J1885

== ENCOUNTER → 2022-02-25 17:27 | Outpatient (CLI) | payer MEDICARE, OTHER, SELFPAY ==
[2022-02-25 18:27] LABS: Appearance Urine UA CLEAR; Bilirubin Urine UA NEGATIVE (NEGATIVE); Color Urine UA YELLOW; Glucose Urine UA TRACE g/dL (Negative); Ketones Urine UA NEGATIVE (NEGATIVE); Leukocyte Esterase Urine UA TRACE (NEGATIVE); Nitrite Urine UA NEGATIVE (Negative); Occult Blood Urine UA NEGATIVE (Negative); Protein Urine UA NEGATIVE (Negative); Urobilinogen Urine UA 0.2 E.U./dL (0.2)
[2022-02-25 18:33] LABS: Culture Indicated Urine Cult Not Indicated; RBC Urine None Seen (0-5/HPF); WBC Urine 5-10/HPF (0-5/HPF)
[2022-02-25 18:34] LABS: Bacteria Urine Occasional (0-1)
== END ==
PROVIDERS: Family Provider Nurse Practitioner; PCP Nurse Practitioner; Visit Provider Nurse Practitioner
DX: R32 Unspecified urinary incontinence (principal)
CPT/HCPCS: 81001

== ENCOUNTER 2022-10-17 19:28 | Emergency (ER) | payer MEDICARE, OTHER, SELFPAY ==
[2022-10-17] VITALS (24 sets, daily range): BP systolic 140–183; BP diastolic 67–100; PULSE 76–89; RESP 10–37; TEMP 36.6–36.9; O2SAT 87–96; BMI 28.3
--- NOTE | 2022-10-17 19:59 | DI.RAD.S_ITS ---
PROCEDURE: XR CHEST 1V INDICATIONS: Chest pain TECHNIQUE: One view of the chest was acquired. COMPARISON: [facility], CR, XR CHEST 1V, 01/22/2022, 13:51. FINDINGS: Surgical changes and devices: None. Lungs and pleura: Lungs are clear. No pleural effusions or pneumothorax. Mediastinum: Mediastinal contours appear normal. Heart size is normal. Bones and chest wall: No suspicious bony lesions. Overlying soft tissues appear unremarkable. IMPRESSION: No acute cardiopulmonary process demonstrated radiographically. Dictated by: Sj Ríos M.D. on 10/17/2022 at 20:32 Approved by: Sj Ríos M.D. on 10/17/2022 at 20:32
--- NOTE | 2022-10-17 19:59 | DI.CT.S_ITS ---
PROCEDURE: CT CERVICAL SPINE WO CON INDICATIONS: trauma/syncope TECHNIQUE: Noncontrast 3 mm thick sections acquired from the skull base to the T4 level. Sagittal and coronal reformats were then constructed. For radiation dose reduction, the following was used: automated exposure control, adjustment of mA and/or kV according to patient size. COMPARISON: None. FINDINGS: Image quality: Excellent. Bones: No fractures or dislocations. Visualized superior ribs are intact. Soft tissues: Prevertebral soft tissues are normal in thickness. No paravertebral hematomas. No apical pneumothoraces. IMPRESSION: No trauma found. Moderately severe mid and lower cervical degenerative disc disease. No traumatic subluxation suspected. Dictated by: Иван Marte M.D. on 10/17/2022 at 20:26 Approved by: Иван Marte M.D. on 10/17/2022 at 20:29
--- NOTE | 2022-10-17 19:59 | DI.CT.S_ITS ---
PROCEDURE: CT HEAD/BRAIN WO CON INDICATIONS: trauma/syncope TECHNIQUE: Noncontrast 4.5 mm thick angled axial sections acquired from the foramen magnum to the vertex, with coronal and sagittal reformats. For radiation dose reduction, the following was used: automated exposure control, adjustment of mA and/or kV according to patient size. COMPARISON: None. FINDINGS: Image quality: Excellent. CSF spaces: Basal cisterns are patent. No extra-axial fluid collections. The ventricles are symmetric in size and shape. Brain: No intracranial bleeds or masses. There is cerebral volume loss for age, with resultant ventricular and sulcal prominence. There are periventricular and deep white matter chronic small vessel ischemic changes. There is intracranial internal carotid artery atherosclerosis. Skull and face: Calvarium and visualized facial bones appear intact, without suspicious lesions. Sinuses: Visualized sinuses and mastoids are clear. IMPRESSION: No acute finding. Dictated by: Sj Ríos M.D. on 10/17/2022 at 20:27 Approved by: Sj Ríos M.D. on 10/17/2022 at 20:28
[2022-10-17 20:37] LABS: COVID19 -Nasal RAPID Negative (Negative)
[2022-10-17 21:35] LABS: INR 1.1 (0.9-1.3); Prothrombin Time 12.2 SECONDS (10.1-12.7)
[2022-10-17 21:37] LABS: PTT Partial Thromboplastin Tim 35 SECONDS (26-36)
[2022-10-17 21:40] LABS: Add Manual Diff / Slide Review NO; Alanine Aminotransferase 20 IU/L (<35); Albumin 4.4 g/dL (3.5-5.0); Albumin Globulin Ratio 1.5 (1.0-2.8); Alkaline Phosphatase 96 U/L (38-126); Aspartate Aminotransferase 24 IU/L (14-36); BUN Creatinine Ratio 25.4 (6-22); Basophils Absolute Auto 100 /uL (0-100); Basophils Percent Auto 0.5 % (0-2); Bilirubin Total 0.6 mg/dL (0.2-1.3); Blood Urea Nitrogen 18 mg/dL (7-17); Calcium 9.5 mg/dL (8.4-10.2); Carbon Dioxide 29 mmol/L (22-32); Chloride 102 mmol/L (98-107); Creatine Kinase 145 U/L (30-135); Eosinophils Absolute Auto 100 /uL (0-450); Eosinophils Percent Auto 0.6 % (2-4); Estimated Glomerular Filt Rate > 60 mL/min (>60); Glucose 131 mg/dL (80-110); HEMOLYSIS 15 (0-50); Hematocrit 40.3 % (36-46); Hemoglobin 13.7 g/dL (12.0-16.0); Lipase 72 U/L (23-300); Lymphocytes Absolute Auto 700 /uL (1100-4500); Mean Corpuscular Hemoglobin 28.8 PG (26-34); Mean Corpuscular Volume 84.8 fL (80-100); Monocytes Absolute Auto 500 /uL (0-900); Monocytes Percent Auto 4.5 % (3-14); Neutrophils Absolute Auto 10200 /uL (1500-7000); Neutrophils Percent Auto 88.4 % (50-75); Platelet Count 348 X10^3/uL (150-400); Potassium 4.2 mmol/L (3.4-5.1); Red Blood Cell Count 4.75 X10^6/uL (4.0-5.2); Red Cell Distribution Width 14.4 % (11.6-14.8); Sodium 138 mmol/L (137-145); Total Protein 7.4 g/dL (6.3-8.2); White Blood Cell Count 11.6 X10^3/uL (4.5-11.0)
[2022-10-17 21:52] LABS: Troponin I < 0.012 ng/mL (0.01-0.034)
--- NOTE | 2022-10-17 21:53 | ED.FALL ---
HPI - Fall General Chief Complaint: Trauma Stated Complaint: Syncope Time Seen by Provider: 10/17/22 20:02 Source: patient and EMS Mode of arrival: EMS History of Present Illness HPI Narrative: Patient is a 87-year-old female history of hypertension hypothyroid, endometrioid ovarian cancer home a presenting today with a syncopal episode. She says she was cooking better sitting at the kitchen table looking at cook when she felt like she was going to pass out and she did she fell and hit her face. Mild like brief loss of consciousness. She denies any chest pain. Has no palpitations she felt a little nauseous afterwards. She is not on any anti-platelet or anticoagulation medications. She has a small laceration on her left cheek. She was in her normal state of health when she woke up she denies any fever chills or other symptoms. Related Data Home Medications Medication Instructions Recorded Confirmed cholecalciferol (vitamin D3) 50 2,000 unit PO DAILY 04/07/19 08/20/22 mcg (2,000 unit) capsule vitamin E mixed 400 unit capsule 400 unit PO DAILY 04/07/19 08/20/22 diphenhydramine 25 1 tab PO BEDTIME PRN Pain (Scale 06/05/19 08/20/22 mg-acetaminophen 500 mg tablet Score 1-3) (Tylenol PM Extra Strength) acetaminophen 500 mg tablet 1,000 mg PO Q6H PRN Pain (Scale 08/20/21 08/20/22 (Tylenol Extra Strength) Score 4-6) Previous Rx's Medication Instructions Recorded omeprazole 20 mg capsule,delayed 20 mg PO DAILY #90 caps 03/24/22 release oxybutynin chloride 5 mg 5 mg PO DAILY #90 tabs 03/24/22 tablet,extended release 24 hr amlodipine 10 mg tablet See Rx Instructions .Route 07/27/22 .COMPLEX #90 tabs levothyroxine 75 mcg tablet See Rx Instructions .Route 07/27/22 .COMPLEX #90 tabs propranolol 60 mg tablet See Rx Instructions .Route 07/27/22 .COMPLEX #180 tabs Allergies Allergy/AdvReac Type Severity Reaction Status Date / Time codeine AdvReac Intermediate Nausea and Verified 06/12/22 15:26 Vomiting. Review of Systems Review of Systems Narrative: GENERAL: Denies chills, fatigue, malaise, fever, sweats, travel HEENT: Denies sinus pain, ear pain, sore throat, difficulty swallowing, neck pain RESPIRATORY: Denies dyspnea, cough, wheezing, hemoptysis, sputum. CARDIOVASCULAR: Denies chest pain, palpitations, orthopnea, edema GASTROINTESTINAL: Denies nausea, vomiting, abdominal pain, diarrhea, constipation, melena. : Denies dysuria, frequency, incontinence, hematuria, urinary retention, flank pain. MUSCULOSKELETAL: Denies weakness, joint pain, or bony pain SKIN: No rash, no erythema, no pruritus NEUROLOGIC: See HPI PSYCHIATRIC: No concerning psychosocial issues. 12 point review of systems is negative except for those stated above and HPI Patient History Medical History Activity intolerance Benign familial tremor (~2009) Bilateral leg pain Breast cancer (~1986) Chicken pox Fatigue Fecal incontinence (~2015) FH: total abdominal hysterectomy and bilateral salpingo-oophorectomy (~03/10/19) Former smoker GERD (gastroesophageal reflux disease) Hearing loss History of urinary incontinence (~2015) Hypothyroidism (~1989) Measles Mumps Ovarian cyst (~2000) Rubella Sacral nerve stimulator present Tinnitus Trigger finger, left little finger Vertigo Word finding difficulty Surgical History Anesthesia Cataracts, bilateral (~2017) History of ankle surgery (~1990) History of bladder surgery (~2016) History of mastectomy (~1986) History of surgery on right wrist (~2015) Ovarian cancer (~2018) Family History Father History of heart disease Hypertension Hyperlipidemia Mother No problems noted. Sister No problems noted. Grandfather No problems noted. Social History marital status: household members: spouse occupational status: previously employed Smoking Status: Former smoker Tobacco: How many years used: 3 second hand exposure: No alcohol intake: never substance use type: does not use Smoking Status: Former smoker alcohol intake frequency: 0-2 drinks per day Substance Use Type: does not use Exam Initial Vital Signs Initial Vital Signs: Vital Signs Pulse Rate 80 10/17/22 19:48 Respiratory Rate 13 10/17/22 19:48 GENERAL: Alert pleasant 87-year-old female and in no acute distress. HEENT: Head atraumatic,EOMI, pupils reactive, face symmetric, moist mucous membranes CARDIOVASCULAR: Regular rate and rhythm without murmurs, rubs or gallops. RESPIRATORY: Breath sounds equal bilaterally, no wheezes rales or rhonchi. ABDOMEN: Soft, nontender. Normoactive bowel sounds all 4 quadrants. No guarding or rebound. EXTREMITIES: Normal range of motion, no clubbing or edema. Neurovascularly intact NEUROLOGICAL: Alert and oriented x4.Normal gait and speech. Supervisor Decorating strength equal bilaterally SKIN: 1.5 cm laceration on right cheek good skin approximation. Syncope contusion noting on the right side of face as well Course Orders Ordered: ED Orders 10/17/22 21:45 D Dimer Stat 10/17/22 22:49 CT angio chest PE protocol Stat CT facial bones wo con Stat Discontinued Medications Aspirin (Aspirin 81 Mg Chew Tab) 324 mg PO NOW ONE Stop: 10/17/22 20:00 Last Admin: 10/17/22 20:12 Dose: Not Given Documented By: CAROLINE Sodium Chloride (Normal Saline 0.9%) 1,000 mls @ 1,000 mls/hr IV BOLUS ONE Stop: 10/17/22 23:02 Last Infusion: 10/18/22 00:13 Dose: 0 mls/hr Documented By: Admin: 10/17/22 22:51 Dose: 1,000 mls/hr Documented By: ANKITA Vital Signs Vital signs: Vital Signs - 8 hr 10/17/22 22:22 10/17/22 22:30 10/17/22 22:31 Pulse Rate 89 85 Respiratory Rate 24 12 Blood Pressure 162/84 H Pulse Oximetry 95 96 10/17/22 22:31 10/17/22 22:45 10/17/22 23:08 Pulse Rate 86 87 85 Respiratory Rate 10 L 33 H 24 Blood Pressure Pulse Oximetry 95 94 95 10/17/22 23:15 10/17/22 23:30 10/17/22 23:45 Pulse Rate 86 85 85 Respiratory Rate 32 H 37 H 26 H Blood Pressure Pulse Oximetry 95 94 94 10/17/22 23:58 10/17/22 23:58 Pulse Rate 87 Respiratory Rate 35 H Blood Pressure 148/88 H Pulse Oximetry 95 MDM - Fall Lab Data Result diagrams: 10/17/22 21:15 10/17/22 21:15 Labs: Lab Results 10/17/22 10/17/22 10/17/22 Range/Units 20:00 21:15 21:15 WBC 11.6 H (4.5-11.0) X10^3/uL RBC 4.75 (4.0-5.2) X10^6/uL Hgb 13.7 (12.0-16.0) g/dL Hct 40.3 (36-46) % MCV 84.8 (80-100) fL MCH 28.8 (26-34) PG MCHC 34.0 (30-36) % RDW 14.4 (11.6-14.8) % Plt Count 348 (150-400) X10^3/uL Neut % (Auto) 88.4 H (50-75) % Lymph % (Auto) 6.0 L (25-40) % Dale % (Auto) 4.5 (3-14) % Eos % (Auto) 0.6 L (2-4) % Baso % (Auto) 0.5 (0-2) % Neut # (Auto) 53765 H (8479-3696) /uL Lymph # (Auto) 700 L (4334-6347) /uL Dale # (Auto) 500 (0-900) /uL Eos # (Auto) 100 (0-450) /uL Baso # (Auto) 100 (0-100) /uL PT 12.2 (10.1-12.7) SECONDS INR 1.1 (0.9-1.3) APTT 35 (26-36) SECONDS D-Dimer (<500) ng/ml Sodium (137-145) mmol/L Potassium (3.4-5.1) mmol/L Chloride (98-107) mmol/L Carbon Dioxide (22-32) mmol/L BUN (7-17) mg/dL Creatinine (0.52-1.04) mg/dL Estimated GFR (>60) mL/min BUN/Creatinine Ratio (6-22) Glucose (80-110) mg/dL Calcium (8.4-10.2) mg/dL Magnesium (1.6-2.3) mg/dL Total Bilirubin (0.2-1.3) mg/dL AST (14-36) IU/L ALT (<35) IU/L Alkaline Phosphatase (38-126) U/L Total Creatine Kinase (30-135) U/L CK-MB (CK-2) (<2.37) ng/mL CK-MB (CK-2) Rel Index (1.5-5.0) % Troponin I (0.01-0.034) ng/mL Total Protein (6.3-8.2) g/dL Albumin (3.5-5.0) g/dL Globulin (1.7-4.1) g/dL Albumin/Globulin Ratio (1.0-2.8) Lipase (23-300) U/L SARS-CoV-2 (PCR) Negative (Negative) 10/17/22 10/17/22 Range/Units 21:15 21:45 WBC (4.5-11.0) X10^3/uL RBC (4.0-5.2) X10^6/uL Hgb (12.0-16.0) g/dL Hct (36-46) % MCV (80-100) fL MCH (26-34) PG MCHC (30-36) % RDW (11.6-14.8) % Plt Count (150-400) X10^3/uL Neut % (Auto) (50-75) % Lymph % (Auto) (25-40) % Dale % (Auto) (3-14) % Eos % (Auto) (2-4) % Baso % (Auto) (0-2) % Neut # (Auto) (7490-0988) /uL Lymph # (Auto) (4677-9112) /uL Dale # (Auto) (0-900) /uL Eos # (Auto) (0-450) /uL Baso # (Auto) (0-100) /uL PT (10.1-12.7) SECONDS INR (0.9-1.3) APTT (26-36) SECONDS D-Dimer 1566 H (<500) ng/ml Sodium 138 (137-145) mmol/L Potassium 4.2 (3.4-5.1) mmol/L Chloride 102 (98-107) mmol/L Carbon Dioxide 29 (22-32) mmol/L BUN 18 H (7-17) mg/dL Creatinine 0.71 (0.52-1.04) mg/dL Estimated GFR > 60 (>60) mL/min BUN/Creatinine Ratio 25.4 H (6-22) Glucose 131 H (80-110) mg/dL Calcium 9.5 (8.4-10.2) mg/dL Magnesium 2.0 (1.6-2.3) mg/dL Total Bilirubin 0.6 (0.2-1.3) mg/dL AST 24 (14-36) IU/L ALT 20 (<35) IU/L Alkaline Phosphatase 96 (38-126) U/L Total Creatine Kinase 145 H (30-135) U/L CK-MB (CK-2) 3.14 H (<2.37) ng/mL CK-MB (CK-2) Rel Index 2.2 (1.5-5.0) % Troponin I < 0.012 (0.01-0.034) ng/mL Total Protein 7.4 (6.3-8.2) g/dL Albumin 4.4 (3.5-5.0) g/dL Globulin 3.0 (1.7-4.1) g/dL Albumin/Globulin Ratio 1.5 (1.0-2.8) Lipase 72 (23-300) U/L SARS-CoV-2 (PCR) (Negative) Urine Dip Bedside Urine Glucose Negative Bedside Urine Bilirubin - Negative Bedside Urine Ketone +/- 5 Urine Specific [place] 1.020 Bedside Urine Occult Blood - Negative Bedside Urine pH 6 Bedside Urine Protein - Negative Bedside Urine Urobilinogen 0.2 Bedside Urine Nitrite - Negative Bedside Urine Leukocytes - Negative Esterase Imaging Data CT scan - head: Radiologist's Impression: CT Scan Report Signed Patient: Cara El MR#: [id number] : 1935 Acct:[id number] Age/Sex: 87 / F Date of Service: 10/17/22 Loc: ED Accession Number: [id number] ?? Procedure: CT head/brain wo con Ordering Provider: Nesha Fields D.O. PROCEDURE:? CT HEAD/BRAIN WO CON ? INDICATIONS:? trauma/syncope ? TECHNIQUE:? Noncontrast 4.5 mm thick angled axial sections acquired from the foramen magnum to the vertex, with coronal and sagittal reformats.? For radiation dose reduction, the following was used:? automated exposure control, adjustment of mA and/or kV according to patient size.? ? COMPARISON:? None. ? FINDINGS:? Image quality:? Excellent.? ? CSF spaces:? Basal cisterns are patent.? No extra-axial fluid collections.? The ventricles are symmetric in size and shape.? ? Brain:? No intracranial bleeds or masses.? There is cerebral volume loss for age, with resultant ventricular and sulcal prominence.? There are periventricular and deep white matter chronic small vessel ischemic changes.? There is intracranial internal carotid artery atherosclerosis.? ? Skull and face:? Calvarium and visualized facial bones appear intact, without suspicious lesions.? ? Sinuses:? Visualized sinuses and mastoids are clear.? ? IMPRESSION:? No acute finding. ? ? Dictated by: Sj Ríos M.D. on 10/17/2022 at 20:27 ? ? Approved by: Sj Ríos M.D. on 10/17/2022 at 20:28 ? CT - cervical spine: Radiologist's Impression: CT Scan Report Signed Patient: Cara El MR#: [id number] : 1935 Acct:[id number] Age/Sex: 87 / F Date of Service: 10/17/22 Loc: ED Accession Number: [id number] ?? Procedure: CT cervical spine wo con Ordering Provider: Nesha Fields D.O. PROCEDURE:? CT CERVICAL SPINE WO CON ? INDICATIONS:? trauma/syncope ? TECHNIQUE:? Noncontrast 3 mm thick sections acquired from the skull base to the T4 level.? Sagittal and coronal reformats were then constructed.? For radiation dose reduction, the following was used:? automated exposure control, adjustment of mA and/or kV according to patient size.? ? COMPARISON:? None. ? FINDINGS:? Image quality:? Excellent.? ? Bones:? No fractures or dislocations.? Visualized superior ribs are intact.? ? Soft tissues:? Prevertebral soft tissues are normal in thickness.? No paravertebral hematomas.? No apical pneumothoraces.? ? ? IMPRESSION:? No trauma found.? Moderately severe mid and lower cervical degenerative disc disease.? No traumatic subluxation suspected. ? Dictated by: Иван Marte M.D. on 10/17/2022 at 20:26 ? ? Chest x-ray: Radiologist's Impression: [address] [address] XRay Report Signed Patient: Cara El MR#: [id number] : 1935 Acct:[id number] Age/Sex: 87 / F Date of Service: 10/17/22 Loc: ED Accession Number: [id number] ?? Procedure: XR chest 1V Ordering Provider: Nesha Fields D.O. PROCEDURE:? XR CHEST 1V ? INDICATIONS:? Chest pain ? TECHNIQUE:? One view of the chest was acquired.? ? COMPARISON:? [facility], CR, XR CHEST 1V, 01/22/2022, 13:51. ? FINDINGS:? ? Surgical changes and devices:? None.? ? Lungs and pleura:? Lungs are clear.? No pleural effusions or pneumothorax.? ? Mediastinum:? Mediastinal contours appear normal.? Heart size is normal.? ? Bones and chest wall:? No suspicious bony lesions.? Overlying soft tissues appear unremarkable.? ? IMPRESSION:? No acute cardiopulmonary process demonstrated radiographically. ? ? Dictated by: Sj Ríos M.D. on 10/17/2022 at 20:32 ? ? ECG Data Interpretation: Normal sinus rhythm rate 77 FL interval 198 QRS 86 MDM Narrative Medical decision making narrative: Patient had a syncopal episode clear exactly why. Not significantly dehydrated. Head CTs negative she is found to be mildly hypoxic here in the ED requiring 1-2 L. Family states this is chronic and ongoing actually bought her home O2 concentrator is to use as needed she is not actually prescribed these occasionally. Her D-dimer is noted to be mildly elevated at 1500 which can H correct over due to her known cancer and hypoxia CT angio was ordered which does not show any pulmonary embolism. No evidence of infection. She is incontinent of both stool and urine but no sign of UTI today. She is certainly septic. At this time patient is able to ambulate no need for admission and can go home. Discharge Plan Departure Patient Disposition: Home Clinical Impression: Syncope Instructions: DI for Syncope in Adults (Fainting) Activity Restrictions/Additional Instructions: *You have been diagnosed with syncope *What to do: At this time no cause of her syncopal episode. Please continue to stay hydrated. No evidence of infection no need for antibiotics *Continue to take medications as directed *Follow up with your primary care provider in 2-3 days or call [phone] *Return to ER if you should have recurrent syncopal episode increasing shortness of breath or any new, worsening or concerning symptoms Prescriptions: No Action omeprazole 20 mg capsule,delayed release(DR/EC) 20 mg PO DAILY Qty: 90 3RF Rx Instructions: Take 1 capsule daily for acid reflux oxybutynin chloride 5 mg tablet extended release 24 hr 5 mg PO DAILY Qty: 90 3RF Rx Instructions: Take 1 tab daily for urinary symptoms propranolol 60 mg tablet See Rx Instructions .ROUTE .COMPLEX Qty: 180 3RF Dose Instruction: TAKE 1 TABLET TWICE A DAY FOR HYPERTENSION AND ESSENTIAL TREMOR Rx Instructions: TAKE 1 TABLET TWICE A DAY FOR HYPERTENSION AND ESSENTIAL TREMOR amlodipine 10 mg tablet See Rx Instructions .ROUTE .COMPLEX Qty: 90 3RF Dose Instruction: TAKE 1 TABLET DAILY FOR HYPERTENSION Rx Instructions: TAKE 1 TABLET DAILY FOR HYPERTENSION levothyroxine 75 mcg tablet See Rx Instructions .ROUTE .COMPLEX Qty: 90 3RF Dose Instruction: TAKE 1 TABLET DAILY Rx Instructions: TAKE 1 TABLET DAILY cholecalciferol (vitamin D3) 2,000 unit capsule 2,000 unit PO DAILY vitamin E mixed 400 unit capsule 400 unit PO DAILY acetaminophen [Tylenol Extra Strength] 500 mg tablet 1,000 mg PO Q6H PRN (Reason: Pain (Scale Score 4-6)) diphenhydramine-acetaminophen [Tylenol PM Extra Strength] 25-500 mg Tablet 1 tab PO BEDTIME PRN (Reason: Pain (Scale Score 1-3)) Referrals: Ayanna Otero ARNP [Primary Care Provider] - Visit Report Forms: Patient Portal/API
[2022-10-17 21:55] LABS: CKMB % Relative Index 2.2 % (1.5-5.0); Creatine Kinase MB 3.14 ng/mL (<2.37)
[2022-10-17 22:22] LABS: D Dimer 1566 ng/ml (<500)
--- NOTE | 2022-10-17 22:49 | DI.CT.S_ITS ---
PROCEDURE: CT FACIAL BONES WO CON INDICATIONS: fall TECHNIQUE: Noncontrast 2.5 mm thick axial images acquired from the mandible through the frontal sinuses, with coronal and sagittal reformatting. For radiation dose reduction, the following was used: automated exposure control, adjustment of mA and/or kV according to patient size. COMPARISON: None. FINDINGS: Image quality: Excellent. Bones and teeth: Orbital quintero are intact. Sinus quintero show no fracture or deformity. Nasal bones and septum are intact. Visualized portions of the mandible demonstrate no fractures or subluxation. Zygomatic arches are intact. Pterygoid plates are intact. Visualized portions of the skull base and auditory canals are intact. Sinuses: Paranasal sinuses are aerated, without fluid levels, mucosal thickening, or mucoceles. Mastoid air cells are aerated. Soft tissues: No edema, masses, or fluid collections. No enlarged lymph nodes. No soft tissue lacerations or debris. Vascular: Visualized vascular structures appear normal in the absence of contrast. Bony vascular foramina and canals are intact. IMPRESSION: No trauma found. Dictated by: Иван Marte M.D. on 10/17/2022 at 23:31 Approved by: Иван Marte M.D. on 10/17/2022 at 23:32
--- NOTE | 2022-10-17 22:49 | DI.CT.S_ITS ---
PROCEDURE: CT ANGIO CHEST PE PROTOCOL INDICATIONS: high dimer hypoxia TECHNIQUE: After the administration of intravenous contrast, 2 mm thick sections acquired from the pulmonary apices to the posterior costophrenic angles. 3-dimensional maximum intensity projection (MIP) coronal and sagittal reformats were then acquired through the thorax. For radiation dose reduction, the following was used: automated exposure control, adjustment of mA and/or kV according to patient size. COMPARISON: None. FINDINGS: Image quality: Excellent. Pulmonary arteries: Pulmonary arteries are normal in size, and demonstrate no intraluminal filling defects to suggest central pulmonary embolism. Lungs and pleura: Lungs are difficult to accurately assess due to reduced inspiratory volume. There is at least mild atelectasis at each lower lung. No pleural effusions or pneumothorax. Central and peripheral airways are patent. Mediastinum: Heart size is normal, without pericardial effusion. No mediastinal or hilar adenopathy. Thoracic aorta is normal in caliber and enhancement. Esophagus is normal in caliber, without hiatal hernia. Bones and chest wall: No suspicious bony lesions. Ribs and thoracic spine appear intact throughout. Thyroid gland appears normal. No axillary or supraclavicular adenopathy. Abdomen: Visualized upper abdominal solid organs appear normal in the early arterial phase of enhancement. IMPRESSION: Prominent reduced inspiratory volume. Resultant lung base atelectasis. No pulmonary embolus seen. Dictated by: Иван Marte M.D. on 10/17/2022 at 23:29 Approved by: Иван Marte M.D. on 10/17/2022 at 23:31
[2022-10-17] MEDS: SODIUM CHLORIDE 0.9% 1,000 ML 1000 ML IV (22:51)
== END 2022-10-18 00:11 | disposition home or self-care (01) ==
PROVIDERS: Emergency Provider Emergency Medicine; Family Provider Nurse Practitioner; PCP Nurse Practitioner
DX: R55 Syncope and collapse (principal); R07.9 Chest pain, unspecified; R09.02 Hypoxemia; Z20.822 Contact with and (suspected) exposure to COVID-19
CPT/HCPCS: 36415; 70450; 70486; 71045; 71275; 72125; 80053; 81003; 82550; 82553; 83690; 83735; 84484; 85025; 85379; 85610; 85730; 87635; 93005; 96360; 99284; C9803; Q9967

== ENCOUNTER → 2022-12-15 13:12 | Outpatient (CLI) | payer MEDICARE, OTHER, SELFPAY ==
[2022-12-15 13:50] LABS: Add Manual Diff / Slide Review NO; Basophils Absolute Auto 100 /uL (0-100); Eosinophils Absolute Auto 200 /uL (0-450); Eosinophils Percent Auto 2.7 % (2-4); Hematocrit 41.4 % (36-46); Hemoglobin 13.9 g/dL (12.0-16.0); Lymphocytes Absolute Auto 1100 /uL (1100-4500); Mean Corpuscular HGB Conc 33.7 % (30-36); Mean Corpuscular Hemoglobin 28.9 PG (26-34); Mean Corpuscular Volume 85.9 fL (80-100); Monocytes Absolute Auto 600 /uL (0-900); Monocytes Percent Auto 9.8 % (3-14); Neutrophils Absolute Auto 4600 /uL (1500-7000); Neutrophils Percent Auto 69.5 % (50-75); Platelet Count 372 X10^3/uL (150-400); Red Blood Cell Count 4.82 X10^6/uL (4.0-5.2); Red Cell Distribution Width 14.7 % (11.6-14.8); White Blood Cell Count 6.6 X10^3/uL (4.5-11.0)
[2022-12-15 14:06] LABS: Alanine Aminotransferase 22 IU/L (<35); Albumin 4.4 g/dL (3.5-5.0); Albumin Globulin Ratio 1.4 (1.0-2.8); Alkaline Phosphatase 69 U/L (38-126); Aspartate Aminotransferase 27 IU/L (14-36); Bilirubin Total 0.6 mg/dL (0.2-1.3); Blood Urea Nitrogen 18 mg/dL (7-17); Calcium 9.7 mg/dL (8.4-10.2); Carbon Dioxide 30 mmol/L (22-32); Chloride 100 mmol/L (98-107); Estimated Glomerular Filt Rate > 60 mL/min (>60); Globulin 3.2 g/dL (1.7-4.1); Glucose 91 mg/dL (80-110); HEMOLYSIS 24 (0-50); Potassium 4.5 mmol/L (3.4-5.1); Sodium 138 mmol/L (137-145); Total Protein 7.6 g/dL (6.3-8.2)
[2022-12-15 14:21] LABS: Free T3, Triiodothyronine Free 3.31 pg/mL (2.77-5.27); Free T4, Direct Thyroxine 1.73 ng/dL (0.78-2.19)
== END ==
PROVIDERS: Family Provider Nurse Practitioner; PCP Nurse Practitioner; Referring Provider Nurse Practitioner; Visit Provider Nurse Practitioner
DX: E03.9 Hypothyroidism, unspecified (principal); R53.83 Other fatigue
CPT/HCPCS: 36415; 80053; 84439; 84443; 84481; 85025

== ENCOUNTER 2023-08-13 11:20 | Emergency (ER) | payer MEDICARE, OTHER, SELFPAY ==
[2023-08-13 11:24] VITALS: BP 162/71; PULSE 60; RESP 16; TEMP 36.1; O2SAT 97; BMI 27.4
--- NOTE | 2023-08-13 11:26 | PC.NURSE ---
1125: called from Waiting area and pt in the bathroom
--- NOTE | 2023-08-13 13:34 | PC.NURSE ---
informed by registration that patient left around [id number]
== END 2023-08-13 13:20 | disposition left against medical advice (07) ==
PROVIDERS: Emergency Provider Emergency Medicine; Family Provider Nurse Practitioner; PCP Nurse Practitioner
CPT/HCPCS: 99281

== ENCOUNTER → 2023-11-03 15:20 | Outpatient (CLI) | payer MEDICARE, OTHER, SELFPAY ==
[2023-11-03 17:06] LABS: Free T3, Triiodothyronine Free 2.98 pg/mL (2.77-5.27); Free T4, Direct Thyroxine 1.63 ng/dL (0.78-2.19)
[2023-11-03 17:20] LABS: Thyroid Stimulating Hormone 2.02 uIU/mL (0.47-4.68)
== END ==
PROVIDERS: Family Provider Nurse Practitioner; PCP Nurse Practitioner; Referring Provider Nurse Practitioner; Visit Provider Nurse Practitioner
DX: L65.9 Nonscarring hair loss, unspecified (principal); R53.83 Other fatigue
CPT/HCPCS: 36415; 84439; 84443; 84481

== ENCOUNTER → 2024-07-03 15:17 | Outpatient (CLI) | payer MEDICARE, OTHER, SELFPAY | PROVIDERS: Family Provider Nurse Practitioner; PCP Nurse Practitioner; Visit Provider Student in an Organized Health Care Education/Training Program | DX: R30.0 Dysuria (principal) | CPT/HCPCS: 87086 ==

== ENCOUNTER → 2024-07-03 15:23 | Outpatient (CLI) | payer MEDICARE, OTHER, SELFPAY ==
--- NOTE | 2024-07-03 15:26 | DI.RAD.S_ITS ---
PROCEDURE: XR WRIST LT MIN 3V INDICATIONS: fall, radial/carpal tender/swell, reduced ROM/numb TECHNIQUE: 3 views of the wrist were acquired. COMPARISON: None. FINDINGS: Bones: Extra-articular fracture of the distal radial metadiaphysis without significant angulation. Mildly displaced ulnar styloid fracture. Soft tissues: No suspicious soft tissue calcifications. IMPRESSION: Extra-articular fracture of the distal radial metadiaphysis. Mildly displaced ulnar styloid fracture. Dictated by: Martin Echevarria M.D. on 07/03/2024 at 16:47 Approved by: Martin Echevarria M.D. on 07/03/2024 at 16:48
--- NOTE | 2024-07-03 15:26 | DI.RAD.S_ITS ---
PROCEDURE: XR FINGER RT MIN 2V INDICATIONS: 5th digit reduced ROM/swelling/fall TECHNIQUE: AP hand, 2 views of the 5th finger(s) acquired. COMPARISON: None. FINDINGS: Bones: Age indeterminate dorsal plate fracture of the 5th middle phalanx base. Healed 5th metacarpal fracture. Osteopenia. Soft tissues: No suspicious soft tissue calcifications. IMPRESSION: Age indeterminate dorsal plate fracture of the 5th middle phalanx. Dictated by: Martin Echevarria M.D. on 07/03/2024 at 16:44 Approved by: Martin Echevarria M.D. on 07/03/2024 at 16:46
--- NOTE | 2024-07-03 15:26 | DI.RAD.S_ITS ---
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 COMPARISON: None. FINDINGS: Surgical changes and devices: None. Bones and chest wall: Nondisplaced left posterior 6th and 7th rib fractures. Lungs and pleura: No pleural effusions or pneumothorax. Lungs appear clear. Mediastinum: Mediastinal contours appear normal. Heart size is normal. IMPRESSION: Nondisplaced left posterior 6th and 7th rib fractures. No pneumothorax. Dictated by: Martin Echevarria M.D. on 07/03/2024 at 16:46 Approved by: Martin Echevarria M.D. on 07/03/2024 at 16:47
== END ==
LOC: RAD 15:26
PROVIDERS: Family Provider Nurse Practitioner; PCP Nurse Practitioner; Referring Provider Student in an Organized Health Care Education/Training Program; Visit Provider Student in an Organized Health Care Education/Training Program
DX: S52.552A Other extraarticular fracture of lower end of left radius, initial encounter for closed fracture; S52.612A Displaced fracture of left ulna styloid process, initial encounter for closed fracture; S62.626A Displaced fracture of middle phalanx of right little finger, initial encounter for closed fracture; S22.42XA Multiple fractures of ribs, left side, initial encounter for closed fracture; R07.81 Pleurodynia; W19.XXXA Unspecified fall, initial encounter
CPT/HCPCS: 71101; 73110; 73140

== ENCOUNTER 2024-07-03 18:05 | Emergency (ER) | payer MEDICARE, OTHER, SELFPAY ==
[2024-07-03 18:15] VITALS: BP 167/80; PULSE 76; RESP 20; TEMP 36.8; O2SAT 94; BMI 29.1
--- NOTE | 2024-07-03 18:37 | EKG_ITS ---
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
[2024-07-03 18:51] LABS: Add Manual Diff / Slide Review NO; Basophils Absolute Auto 100 /uL (0-100); Basophils Percent Auto 0.7 % (0-2); Eosinophils Absolute Auto 100 /uL (0-450); Eosinophils Percent Auto 0.5 % (2-4); Hematocrit 42.2 % (36-46); Hemoglobin 14.2 g/dL (12.0-16.0); Lymphocytes Absolute Auto 800 /uL (1100-4500); Lymphocytes Percent Auto 5.3 % (25-40); Mean Corpuscular HGB Conc 33.6 % (30-36); Mean Corpuscular Hemoglobin 28.7 PG (26-34); Mean Corpuscular Volume 85.3 fL (80-100); Monocytes Absolute Auto 1200 /uL (0-900); Monocytes Percent Auto 8.3 % (3-14); Neutrophils Absolute Auto 12600 /uL (1500-7000); Neutrophils Percent Auto 85.2 % (50-75); Platelet Count 502 X10^3/uL (150-400); Red Blood Cell Count 4.95 X10^6/uL (4.0-5.2); White Blood Cell Count 14.8 X10^3/uL (4.5-11.0)
[2024-07-03 18:58] LABS: Alanine Aminotransferase 20 IU/L (<35); Albumin 4.6 g/dL (3.5-5.0); Albumin Globulin Ratio 1.5 (1.0-2.8); Alkaline Phosphatase 69 U/L (38-126); Aspartate Aminotransferase 25 IU/L (14-36); BUN Creatinine Ratio 19.1 (6-22); Bilirubin Total 1.1 mg/dL (0.2-1.3); Blood Urea Nitrogen 13 mg/dL (7-17); Calcium 9.9 mg/dL (8.4-10.2); Carbon Dioxide 24 mmol/L (22-32); Chloride 100 mmol/L (98-107); Creatine Kinase 61 U/L (30-135); Estimated Glomerular Filt Rate > 60 mL/min (>60); Glucose 150 mg/dL (80-110); HEMOLYSIS < 15 (0-50); Lipase 45 U/L (23-300); Potassium 3.8 mmol/L (3.4-5.1); Sodium 133 mmol/L (137-145); Total Protein 7.6 g/dL (6.3-8.2)
[2024-07-03 19:10] LABS: NT-proBNP (BNP-Adult 18+) 386 pg/mL (<450); Troponin I < 0.012 ng/mL (0.01-0.034)
[2024-07-03 19:35] LABS: INR 1.1 (0.9-1.3); Prothrombin Time 12.1 SECONDS (9.4-12.5)
[2024-07-03 19:38] LABS: PTT Partial Thromboplastin Tim 34 SECONDS (25.1-36.5)
[2024-07-03 23:10] VITALS: BP 144/91; PULSE 87; RESP 16; O2SAT 98
--- NOTE | 2024-07-03 23:16 | PC.NURSE ---
left ring finger , wedding band quite snug on patient. hand cream given to patient . ice pack to wrist.
--- NOTE | 2024-07-03 23:35 | DI.CT.S_ITS ---
PROCEDURE: CT CHEST WO CON INDICATIONS: chest trauma blunt TECHNIQUE: Noncontrast 5 mm thick sections acquired from the pulmonary apices to the posterior costophrenic angles. 1 mm lung window, 5 mm thick coronal and sagittal and 7 mm axial MIP reformats were then acquired. For radiation dose reduction, the following was used: automated exposure control, adjustment of mA and/or kV according to patient size. COMPARISON: [facility], CT, CT ANGIO CHEST PE PROTOCOL, 10/17/2022, 22:53. FINDINGS: Image quality: Diagnostic. Lower Neck: No enlarged lymph nodes. Thyroid: No thyroid nodules which require sonographic follow up, per consensus guidelines. Axillae: No enlarged lymph nodes. Chest Wall: Left mastectomy. Bones: Mildly displaced left lateral 4th through 8th rib fractures.. Lungs and Pleura: No pneumothorax or pleural effusions. Mild ground-glass opacity within the right upper lobe (3/141) measuring 2.7 cm. This is similar appearance to prior. Similar appearance of medial right lower lobe nodule measuring 9 mm (3/179). Mild bibasilar subsegmental atelectasis. Heart: Heart size is normal. Severe coronary artery calcifications. No pericardial effusion. Thoracic Vessels: The aorta and pulmonary arteries demonstrate normal size. Atherosclerotic vascular calcifications. Mediastinum and Natalie: No enlarged lymph nodes. Esophagus: No wall thickening. Small hiatal hernia. Upper Abdomen: Visualized upper abdomen solid organs and bowel loops appear normal. IMPRESSION: 1. Mildly displaced left lateral 4th through 8th rib fractures. 2. Ground-glass opacity within the right upper lobe measuring up to 2.7 cm is similar in appearance to prior exam from 2021. Recommend 1 year follow-up chest CT. 3. Right medial lower lobe lung nodule measuring 9 mm is similar to prior. Dictated by: Kalin Samaniego M.D. on 07/04/2024 at 0:24 Approved by: Kalin Samaniego M.D. on 07/04/2024 at 0:29
--- NOTE | 2024-07-03 23:39 | ED_ITS ---
HPI - Syncope <Hilario Blanchard MD - Last Filed: 12/20/24 07:18> General Chief Complaint: Extremity Injury, Upper Stated Complaint: sent by [facility] for arm splints Time Seen by Provider: 07/03/24 19:59 Source: patient and family Mode of arrival: Wheelchair Limitations: no limitations History of Present Illness HPI narrative: This is an 81-year-old female who arrives by private vehicle was referred here by urgent care. Patient has syncopal fall yesterday landing on her left side. Imaging done at urgent Care showed fractures of the left 6th and 7th ribs. Also has a distal radius and ulna fracture on the left wishes described as extra- articular and fracture of the middle phalanx base on the right hand. Patient states she did not hit her head. Urinalysis done at urgent Care suggested infection with nitrites and leukocyte esterase she reports chronically having urinary symptoms. She has a history of uterine cancer with implant of the bladder stimulator. She reports episodic dizzy spells and syncope recently. Says that she has had some dark stool, no nausea or vomiting no chest pain prior to the fall and no fevers. Related Data Home Medications Medication Instructions Recorded Confirmed vitamin E mixed 400 unit capsule 400 unit PO DAILY 04/07/19 10/24/24 acetaminophen 500 mg tablet 1,000 mg PO Q6H PRN Pain (Scale 08/20/21 10/24/24 (Tylenol Extra Strength) Score 4-6) cholecalciferol (vitamin D3) 50 4,000 unit PO DAILY 03/10/23 10/24/24 mcg (2,000 unit) capsule calcium carbonate (Tums E-X) 600 mg PO DAILY 02/09/24 10/24/24 metamucil See Rx Instructions .Route .COMPLEX 02/09/24 10/24/24 Disabled Parking Placard 07/12/24 10/24/24 Previous Rx's Medication Instructions Recorded Mastectomy bras #2 ea 11/03/23 Mastectomy prosthetic #1 ea 11/03/23 hydrocodone 5 mg-acetaminophen 325 1 tab PO BEDTIME PRN pain #10 tabs 07/04/24 mg tablet amlodipine 10 mg tablet See Rx Instructions .Route 08/29/24 .COMPLEX #90 tabs levothyroxine 75 mcg tablet See Rx Instructions .Route 08/29/24 .COMPLEX #90 tabs propranolol 60 mg tablet See Rx Instructions .Route 08/29/24 .COMPLEX #60 tabs omeprazole 20 mg capsule,delayed 20 mg PO DAILY #90 caps 08/30/24 release oxybutynin chloride 5 mg 10 mg (2 x 5 mg) PO BEDTIME #60 08/30/24 tablet,extended release 24 hr tabs Allergies Allergy/AdvReac Type Severity Reaction Status Date / Time codeine AdvReac Intermediate Nausea and Verified 10/24/24 10:05 Vomiting. <Elvia Delacruz MD - Last Filed: 07/04/24 02:10> History of Present Illness HPI narrative: This is an 89-year-old female who arrives by private vehicle was referred here by urgent care. Patient has syncopal fall in the morning of the 18 landing on her left side. Imaging done at urgent Care showed fractures of the left 6th and 7th ribs. Also has a distal radius and ulna fracture on the left which is described as extra-articular and fracture of the middle phalanx base on the right hand. Patient states she did not hit her head. Urinalysis done at urgent Care suggested infection with nitrites and leukocyte esterase she reports chronically having urinary symptoms. She has a history of uterine cancer with implant of the bladder stimulator. She reports episodic dizzy spells and syncope recently. Says that she has had some dark stool, no nausea or vomiting no chest pain prior to the fall and no fevers. Review of Systems <Elvia Delacruz MD - Last Filed: 07/04/24 02:10> Review of Systems Narrative: Pertinent positive and negative findings as per HPI Patient History <Hilario Blanchard MD - Last Filed: 12/20/24 07:18> Medical History Fatigue Former smoker FH: total abdominal hysterectomy and bilateral salpingo-oophorectomy (~03/10/19) Hearing loss Benign familial tremor (~2009) Rubella Mumps Measles Chicken pox Tinnitus Ovarian cyst (~2000) History of urinary incontinence (~2015) Fecal incontinence (~2015) Hypothyroidism (~1989) Breast cancer (~1986) Surgical History Anesthesia History of bladder surgery (~2017) History of surgery on right wrist (~2015) History of ankle surgery (~1990) Cataracts, bilateral (~2017) Ovarian cancer (~2018) History of mastectomy (~1986) Family History Father History of heart disease Hypertension Hyperlipidemia Mother No problems noted. Sister No problems noted. Grandfather No problems noted. Social History marital status: household members: spouse occupational status: previously employed Smoking Status: Former smoker Tobacco: How many years used: 3 second hand exposure: No alcohol intake: never substance use type: does not use Smoking Status: Former smoker alcohol intake frequency: a few times a week Substance Use Type: does not use Exam <Hilario Blanchard MD - Last Filed: 12/20/24 07:18> Initial Vital Signs Initial Vital Signs: Vital Signs Temperature 98.3 F 07/03/24 18:15 Pulse Rate 76 07/03/24 18:15 Respiratory Rate 20 07/03/24 18:15 Blood Pressure 167/80 H 07/03/24 18:15 Pulse Oximetry 94 07/03/24 18:15 Oxygen Delivery Method Room Air 07/03/24 18:15 Const Other: Elderly female who is alert and in no distress [facility] Other: Normocephalic and atraumatic. There is no scalp hematoma Eyes Other: Pupils equal round and react Neck Other: Supple without midline tenderness step-off Chest Other: Left-sided chest wall tenderness without crepitance, she does have diminished breath sounds in the left Cardio Other: Regular rhythm and rate no murmur rub or gallop GI Other: Bowel sounds are normal abdomen is soft and nontender Back/Spine/Pelvis Other: No tenderness of thoracic or lumbar spine Neuro Other: Alert fully oriented moving all 4 extremities spontaneously and equally Extrem Other: Left wrist has some swelling there is no visible deformity distal neurovascular exam is intact she does have a wedding ring on which will need to be cut a capillary refills intact Right ring and long fingers have been niya-taped <Elvia Delacruz MD - Last Filed: 07/04/24 02:10> Initial Vital Signs Initial Vital Signs: Vital Signs Temperature 98.3 F 07/03/24 18:15 Pulse Rate 76 07/03/24 18:15 Respiratory Rate 20 07/03/24 18:15 Blood Pressure 167/80 H 07/03/24 18:15 Pulse Oximetry 94 07/03/24 18:15 Oxygen Delivery Method Room Air 07/03/24 18:15 Course <Hilario Blanchard MD - Last Filed: 12/20/24 07:18> Orders Ordered: Discontinued Medications Hydrocodone Bitart/Acetaminophen (Hydrocodone/Acet 5/325 Prepack) 1 bottle MISC DIRECTED ONE Stop: 07/04/24 02:04 Last Admin: 07/04/24 02:09 Dose: 1 bottle Documented By: ANKITA Aspirin (Aspirin 81 Mg Chew Tab) 324 mg PO NOW ONE Stop: 07/03/24 18:38 Last Admin: 07/03/24 19:19 Dose: Not Given Documented By: ELADIO Vital Signs Vital signs: Vital Signs - 8 hr 07/03/24 18:15 07/03/24 23:10 Temperature 98.3 F Pulse Rate 76 87 Respiratory Rate 20 16 Blood Pressure 167/80 H 144/91 H Pulse Oximetry 94 98 Oxygen Delivery Method Room Air Room Air <Elvia Delacruz MD - Last Filed: 07/04/24 02:10> Orders Ordered: Discontinued Medications Hydrocodone Bitart/Acetaminophen (Hydrocodone/Acet 5/325 Prepack) 1 bottle MISC DIRECTED ONE Stop: 07/04/24 02:04 Last Admin: 07/04/24 02:09 Dose: 1 bottle Documented By: ANKITA Aspirin (Aspirin 81 Mg Chew Tab) 324 mg PO NOW ONE Stop: 07/03/24 18:38 Last Admin: 07/03/24 19:19 Dose: Not Given Documented By: ELADIO Vital Signs Vital signs: Vital Signs - 8 hr 07/03/24 18:15 07/03/24 23:10 Temperature 98.3 F Pulse Rate 76 87 Respiratory Rate 20 16 Blood Pressure 167/80 H 144/91 H Pulse Oximetry 94 98 Oxygen Delivery Method Room Air Room Air MDM - Syncope <Hilario Blanchard MD - Last Filed: 12/20/24 07:18> Lab Data 07/03/24 18:35 07/03/24 18:35 Labs: Lab Results 07/03/24 Range/Units 18:35 WBC 14.8 H (4.5-11.0) X10^3/uL RBC 4.95 (4.0-5.2) X10^6/uL Hgb 14.2 (12.0-16.0) g/dL Hct 42.2 (36-46) % MCV 85.3 (80-100) fL MCH 28.7 (26-34) PG MCHC 33.6 (30-36) % RDW 15.0 H (11.6-14.8) % Plt Count 502 H (150-400) X10^3/uL Neut % (Auto) 85.2 H (50-75) % Lymph % (Auto) 5.3 L (25-40) % [place] % (Auto) 8.3 (3-14) % Eos % (Auto) 0.5 L (2-4) % Baso % (Auto) 0.7 (0-2) % Neut # (Auto) 02193 H (1480-0119) /uL Lymph # (Auto) 800 L (6861-2094) /uL [place] # (Auto) 1200 H (0-900) /uL Eos # (Auto) 100 (0-450) /uL Baso # (Auto) 100 (0-100) /uL PT 12.1 (9.4-12.5) SECONDS INR 1.1 (0.9-1.3) APTT 34 (25.1-36.5) SECONDS Sodium 133 L (137-145) mmol/L Potassium 3.8 (3.4-5.1) mmol/L Chloride 100 (98-107) mmol/L Carbon Dioxide 24 (22-32) mmol/L BUN 13 (7-17) mg/dL Creatinine 0.68 (0.52-1.04) mg/dL Estimated GFR > 60 (>60) mL/min BUN/Creatinine Ratio 19.1 (6-22) Glucose 150 H (80-110) mg/dL Calcium 9.9 (8.4-10.2) mg/dL Magnesium 2.0 (1.6-2.3) mg/dL Total Bilirubin 1.1 (0.2-1.3) mg/dL AST 25 (14-36) IU/L ALT 20 (<35) IU/L Alkaline Phosphatase 69 (38-126) U/L Total Creatine Kinase 61 (30-135) U/L Troponin I < 0.012 (0.01-0.034) ng/mL NT-Pro-B Natriuret Pep 386 (<450) pg/mL Total Protein 7.6 (6.3-8.2) g/dL Albumin 4.6 (3.5-5.0) g/dL Globulin 3.0 (1.7-4.1) g/dL Albumin/Globulin Ratio 1.5 (1.0-2.8) Lipase 45 (23-300) U/L <Elvia Delacruz MD - Last Filed: 07/04/24 02:10> Lab Data Labs: Lab Results 07/03/24 Range/Units 18:35 WBC 14.8 H (4.5-11.0) X10^3/uL RBC 4.95 (4.0-5.2) X10^6/uL Hgb 14.2 (12.0-16.0) g/dL Hct 42.2 (36-46) % MCV 85.3 (80-100) fL MCH 28.7 (26-34) PG MCHC 33.6 (30-36) % RDW 15.0 H (11.6-14.8) % Plt Count 502 H (150-400) X10^3/uL Neut % (Auto) 85.2 H (50-75) % Lymph % (Auto) 5.3 L (25-40) % [place] % (Auto) 8.3 (3-14) % Eos % (Auto) 0.5 L (2-4) % Baso % (Auto) 0.7 (0-2) % Neut # (Auto) 24434 H (8565-9301) /uL Lymph # (Auto) 800 L (5555-8324) /uL [place] # (Auto) 1200 H (0-900) /uL Eos # (Auto) 100 (0-450) /uL Baso # (Auto) 100 (0-100) /uL PT 12.1 (9.4-12.5) SECONDS INR 1.1 (0.9-1.3) APTT 34 (25.1-36.5) SECONDS Sodium 133 L (137-145) mmol/L Potassium 3.8 (3.4-5.1) mmol/L Chloride 100 (98-107) mmol/L Carbon Dioxide 24 (22-32) mmol/L BUN 13 (7-17) mg/dL Creatinine 0.68 (0.52-1.04) mg/dL Estimated GFR > 60 (>60) mL/min BUN/Creatinine Ratio 19.1 (6-22) Glucose 150 H (80-110) mg/dL Calcium 9.9 (8.4-10.2) mg/dL Magnesium 2.0 (1.6-2.3) mg/dL Total Bilirubin 1.1 (0.2-1.3) mg/dL AST 25 (14-36) IU/L ALT 20 (<35) IU/L Alkaline Phosphatase 69 (38-126) U/L Total Creatine Kinase 61 (30-135) U/L Troponin I < 0.012 (0.01-0.034) ng/mL NT-Pro-B Natriuret Pep 386 (<450) pg/mL Total Protein 7.6 (6.3-8.2) g/dL Albumin 4.6 (3.5-5.0) g/dL Globulin 3.0 (1.7-4.1) g/dL Albumin/Globulin Ratio 1.5 (1.0-2.8) Lipase 45 (23-300) U/L Imaging Data CT scan - chest: Radiologist's Impression: PROCEDURE: CT CHEST WO CON INDICATIONS: chest trauma blunt TECHNIQUE: Noncontrast 5 mm thick sections acquired from the pulmonary apices to the posterior costophrenic angles. 1 mm lung window, 5 mm thick coronal and sagittal and 7 mm axial MIP reformats were then acquired. For radiation dose reduction, the following was used: automated exposure control, adjustment of mA and/or kV according to patient size. COMPARISON: [facility], CT, CT ANGIO CHEST PE PROTOCOL, 10/17/2022, 22:53. FINDINGS: Image quality: Diagnostic. Lower Neck: No enlarged lymph nodes. Thyroid: No thyroid nodules which require sonographic follow up, per consensus guidelines. Axillae: No enlarged lymph nodes. Chest Wall: Left mastectomy. Bones: Mildly displaced left lateral 4th through 8th rib fractures.. Lungs and Pleura: No pneumothorax or pleural effusions. Mild ground-glass opacity within the right upper lobe (3/141) measuring 2.7 cm. This is similar appearance to prior. Similar appearance of medial right lower lobe nodule measuring 9 mm (3/179). Mild bibasilar subsegmental atelectasis. Heart: Heart size is normal. Severe coronary artery calcifications. No pericardial effusion. Thoracic Vessels: The aorta and pulmonary arteries demonstrate normal size. Atherosclerotic vascular calcifications. Mediastinum and Natalie: No enlarged lymph nodes. Esophagus: No wall thickening. Small hiatal hernia. Upper Abdomen: Visualized upper abdomen solid organs and bowel loops appear normal. IMPRESSION: 1. Mildly displaced left lateral 4th through 8th rib fractures. 2. Ground-glass opacity within the right upper lobe measuring up to 2.7 cm is similar in appearance to prior exam from 2021. Recommend 1 year follow-up chest CT. 3. Right medial lower lobe lung nodule measuring 9 mm is similar to prior. Dictated by: Kalin Samaniego M.D. on 07/04/2024 at 0:24 MDM Narrative Medical decision making narrative: CC: 89-year-old woman syncopal episode yesterday rib pain wrist pain finger pain initially seen at urgent care referred to the ER for further evaluation Complicating co-morbidities: Hypertension, hypothyroidism Data collected from: patient Medical records reviewed: Notes from urgent care reviewed Differential considered: Wrist fracture, humerus fracture, shoulder fracture, multiple rib fractures, pneumothorax, pulmonary contusion, finger fractures Exam documented above, pertinent findings include: Pleasant 89-year-old woman with swelling to her right 4th finger, left wrist and complaints of tenderness in the left mid axillary line. She is able to move with minimal difficulty. Able to ambulate back to me exam room. No respiratory distress no other abnormalities Lab Test results independently reviewed as above. Pertinent findings: CBC shows mild leukocytosis at 14.8, platelets 500. Slight left shift Chemistries are reassuring, no renal function abnormalities Troponin is unremarkable Urine has leukocytes and nitrites however she does not feel that she has a urinary tract infection. Will await culture prior to any treatment Independently reviewed EKG: EKG shows sinus rhythm at a rate of 74 with no acute ischemic changes Imaging studies independently reviewed: Rib x-ray suggests left ribs 6 and 7 are fractured without pneumo or hemothorax CT scan of the chest shows ribs 4 through 8 are fractured with out hemo thorax, pneumothorax or underlying pulmonary contusion She has a distal left radius fracture that does not involve the joint and an ulnar styloid fracture Dorsal plate fracture of the 5th middle phalanx right fingers Treatments: Right middle finger is niya-taped for support Sugar-tong splint is placed on the left forearm by nursing staff. Patient is neurovascularly intact pre and post placement. Sling is placed for comfort. She is neurovascularly intact after sling placement as well Patient is declined pain medications She is given an incentive spirometer along with instructions Discussion: 89-year-old woman fell greater than 48 hours ago sustaining left ribs 4 through 8 fractures along the mid axillary line. She is tolerating the pain extraordinarily well there was no complications to suggest that hospitalization would be required at this time. She is also sustained a left wrist fracture and is more upset about the emergency department weight than she is about any pain associated with the wrist. The right middle finger is niya taped. We did discuss the possible need for pain medication she was willing to have some hydrocodone at home if pain were to worsen. Understands the need for incentive spirometer to help prevent atelectasis. She is referred to [facility] for definitive treatment of her wrist and finger fractures. Suggested they contact the clinic tomorrow to set up a follow up appointment. At this point despite the multiple rib fractures at the age of 89 she remains remarkably independent not interested all in additional help or hospitalization and she is safe for discharge home Discharge Plan Departure Patient Disposition: Home Clinical Impression: Multiple fractures of rib involving four or more ribs Fracture of left wrist Qualifiers: Encounter type: initial encounter Fracture type: closed Qualified Code(s): S 62.102A - Fracture of unspecified carpal bone, left wrist, initial encounter for closed fracture Fracture of finger Qualifiers: Encounter type: initial encounter Finger: ring finger Fracture type: closed P halanx: unspecified phalanx Fracture alignment: nondisplaced Laterality: right Q ualified Code(s): S62.604A - Fracture of unspecified phalanx of right ring finger, initial encounter for closed fracture Instructions: DI for Rib Fracture, DI for Wrist Fracture, DI for Finger Fracture Activity Restrictions/Additional Instructions: Thank you for coming in today You are tolerating all of these fractures remarkably well. You broke ribs 4, 5, 6, 7 and 8 on the left side. You seemed to be tolerating this quite well. I have given you an incentive spirometer and suggest that you use 2 puffs at least every hour while you are awake to make sure that your lung stays fully inflated in you are not at risk for pneumonia. You can use Tylenol for medium pain if needed. You may find that ice is helpful. For severe pain you can use 1 hydrocodone. This is a narcotic medication and was cause constipation, please make sure you take it with a a stool softener You also broke her left wrist. This is currently in a splint with a sling. This will need definitive treatment with orthopedic surgeons. Please call [facility] at [phone] to schedule a follow up appointment for your wrist fracture You also broke you are right little finger. It is unclear if this is actually a new fracture or an old fracture. We have niya taped it to the finger beside it to help with pain control If you find that you are getting worse or you are having new symptoms, please feel free to return to the ER Prescriptions: New hydrocodone-acetaminophen 5-325 mg tablet 1 tab PO BEDTIME PRN (Reason: pain) Qty: 10 0RF No Action amlodipine 10 mg tablet See Rx Instructions .ROUTE .COMPLEX Qty: 90 3RF Dose Instruction: TAKE 1 TABLET DAILY FOR HYPERTENSION Rx Instructions: Take 1 tab daily for hypertension; levothyroxine 75 mcg tablet See Rx Instructions .ROUTE .COMPLEX Qty: 90 3RF Dose Instruction: TAKE 1 TABLET DAILY Rx Instructions: TAKE 1 TABLET DAILY propranolol 60 mg tablet See Rx Instructions .ROUTE .COMPLEX Qty: 60 3RF Dose Instruction: TAKE 1 TABLET TWICE A DAY FOR HYPERTENSION AND ESSENTIAL TREMOR Rx Instructions: TAKE 1 TABLET TWICE A DAY FOR HYPERTENSION AND ESSENTIAL TREMOR omeprazole 20 mg capsule,delayed release(DR/EC) 20 mg PO DAILY Qty: 90 3RF Rx Instructions: Take 1 capsule daily for acid reflux oxybutynin chloride 5 mg tablet extended release 24hr 10 mg PO BEDTIME Qty: 60 3RF Rx Instructions: Take 2 tabs at bedtime for urinary symptoms vitamin E mixed 400 unit capsule 400 unit PO DAILY (DME) Disabled Parking Placard See Rx Instructions .Route .MEDSUPPLY Rx Instructions: Patient has permanent Disabled Parking Placard per daughter acetaminophen [Tylenol Extra Strength] 500 mg tablet 1,000 mg PO Q6H PRN (Reason: Pain (Scale Score 4-6)) cholecalciferol (vitamin D3) 50 mcg (2,000 unit) capsule 4,000 unit PO DAILY (DME) Mastectomy bras See Rx Instructions .Route .MEDSUPPLY Qty: 2 0RF Rx Instructions: 2 mastectomy bras (DME) Mastectomy prosthetic See Rx Instructions .Route .MEDSUPPLY Qty: 1 0RF Rx Instructions: As directed metamucil See Rx Instructions .ROUTE .COMPLEX Rx Instructions: 2 gummies by mouth daily; Tums E-X 300 mg (750 mg) tablet,chewable 600 mg PO DAILY Referrals: Ayanna Otero ARNP [Primary Care Provider] - Stand Alone Forms: Patient Portal/API
--- NOTE | 2024-07-04 00:08 | PC.NURSE ---
Remove gold ring from left ring finger with electric ring cutter. Placed in cup and bag given to pt daughter.
[2024-07-04] MEDS: HYDROCODONE/ACET 5/325 PREPACK 1 BOTTLE MISC (02:09)
[2024-07-04 02:23] VITALS: BP 144/91; PULSE 87; RESP 16; O2SAT 92
== END 2024-07-04 02:26 | disposition home or self-care (01) ==
PROVIDERS: Emergency Provider Emergency Medicine; Family Provider Nurse Practitioner; PCP Nurse Practitioner
DX: S22.42XA Multiple fractures of ribs, left side, initial encounter for closed fracture (principal); S62.102A Fracture of unspecified carpal bone, left wrist, initial encounter for closed fracture; S62.656A Nondisplaced fracture of middle phalanx of right little finger, initial encounter for closed fracture; I10 Essential (primary) hypertension; R55 Syncope and collapse; S52.552A Other extraarticular fracture of lower end of left radius, initial encounter for closed fracture; S52.612A Displaced fracture of left ulna styloid process, initial encounter for closed fracture; S62.626A Displaced fracture of middle phalanx of right little finger, initial encounter for closed fracture; R07.81 Pleurodynia; W19.XXXA Unspecified fall, initial encounter; R30.0 Dysuria
CPT/HCPCS: 29125; 36415; 71101; 71250; 73110; 73140; 80053; 82550; 83690; 83735; 83880; 84484; 85025; 85610; 85730; 87086; 93005; 99283; 99284

== ENCOUNTER → 2024-08-23 | Outpatient (CLI) | payer MEDICARE, OTHER, SELFPAY ==
--- NOTE | 2024-08-23 09:42 | DI.ECHO.S_ITS ---
[place] +---------+ Hospital : : [address] : : [place] : : [id number] : : Phone: [phone] Echocardiogram Report + + :Name: FERNANDEZ LARES Study Date: 08/23/2024 Height: 64 in : :Hospital ReadingLocation: Weight: 160 lb : : Gender: Female BSA: 1.8 m2 : :: 1935 Age: 89 yrs BP: 143/77 mmHg: :Reason For Study: SYNCOPE : :Ordering Physician: BERTHA, : :POOJA Performed By: Brandie Watters : :Referring: POOJA STONE : + + Interpretation Summary Normal LV size and systolic function. LVEF is 60-65% Diastolic parameters suggest probable elevated filling pressures. No more than mild valvular dysfunction is noted. Other findings as below. No previous echo images are available for comparison. No explanation for patient's syncope is found on this exam. Procedure: A two-dimensional transthoracic echocardiogram with color flow and Doppler was performed. There is no prior echocardiogram noted for this patient. Best images from Apical window. The patient was in sinus bradycardia with heart rates between 57-63 bpm during the exam. Left Ventricle: The left ventricle is normal in size and wall thickness. The ejection fraction is estimated to be 60-65%. Left ventricular wall motion is normal. Diastolic parameters suggest probable elevated filling pressures. Right Ventricle: The right ventricle is normal in size and function. There is normal right ventricular wall thickness. The right ventricular systolic function is normal. Atria: The left atrial size is normal. Right atrial size is normal. There is no Doppler evidence for an interatrial shunt. Mitral Valve: There is mild to moderate mitral annular calcification. The mitral valve leaflets appear mildly thickened, but open well. There is mild mitral regurgitation. Aortic Valve: The aortic valve opens well. There is mild aortic valve sclerosis. There is no aortic valve stenosis. No aortic regurgitation is present. Tricuspid Valve: The tricuspid valve is normal in structure and function. There is mild tricuspid regurgitation. The right ventricular systolic pressure is estimated to be at least 26 mmHg based on an estimated right atrial pressure of 3 mm Hg. Pulmonic Valve: The pulmonic valve is not well visualized. There is no pulmonic valvular regurgitation. Great Vessels: The aortic root is normal size. The ascending aorta could not be visualized. The IVC is of normal diameter and collapses greater than 50% with a sniff. This suggests a low right atrial pressure of 3 mm Hg. Pericardium/ Pleura There is no pericardial effusion. There is no pleural effusion. MMode/2D Measurements & Calculations LVIDd: 4.4 cm LVOT diam: 2.0 cm LVIDs: 3.0 cm Ao root diam: 3.3 cm FS: 33.2 % Ao Arch Diam (Prox Trans): 3.0 cm IVSd: 1.0 cm LVPWd: 1.0 cm LV yeager. diameter/BSA (cm/m^2): 2.5 LV sys. diameter/BSA (cm/m^2): 1.7 LA A2 area: 18.9 cm2 RA long axis: 5.6 cm LA A4 area: 17.1 cm2 RA area: 14.2 cm2 LA length (vol): 5.9 cm RA vol: 30.7 ml LA vol: 46.7 ml RA : 17.2 ml/m2 LA vol index: 26.3 ml/m2 IVC diam: 1.3 cm RVD1 (basal): 2.6 cm RVD2 (mid): 2.0 cm TAPSE: 1.8 cm Doppler Measurements & Calculations Ao V2 max: 160.8 cm/sec LVOT Max Smith: 131.2 cm/sec Ao V2 mean: 108.7 cm/sec LV V1 max P.9 mmHg Ao max P.3 mmHg LV V1 VTI: 29.9 cm Ao mean P.3 mmHg JESSICA(I,D): 2.5 cm2 Ao V2 VTI: 36.4 cm JESSICA(V,D): 2.5 cm2 sev ratio: 0.82 JESSICA indexed to BSA (cm^2/m^2): 1.4 MV E max smith: 107.5 cm/sec TR max smith: 239.8 cm/sec MV A max smith: 129.0 cm/sec TR max P.0 mmHg MV E/A: 0.83 Med Peak E' Smith: 5.2 cm/sec E/E' med: 20.6 Lat Peak E' Smith: 5.5 cm/sec E/E' lat: 19.7 E/e' average: 20.2 MV dec time: 0.34 sec SV(LVOT): 90.2 ml Reading Physician:ERNESTINA
== END ==
LOC: ECHO 09:22
PROVIDERS: Family Provider Nurse Practitioner; PCP Family Medicine; Referring Provider Family Medicine; Visit Provider Family Medicine
DX: R55 Syncope and collapse (principal); I08.3 Combined rheumatic disorders of mitral, aortic and tricuspid valves
CPT/HCPCS: 93306

== ENCOUNTER → 2025-02-26 12:52 | Outpatient (CLI) | payer MEDICARE, OTHER, SELFPAY ==
--- NOTE | 2025-02-26 12:57 | DI.RAD.S_ITS ---
PROCEDURE: XR FOOT RT MIN 3V INDICATIONS: foot pain TECHNIQUE: 3 views of the foot were acquired. COMPARISON: None. FINDINGS: Bones: Nondisplaced oblique fracture of the 5th metatarsal base noted . Moderate hallux valgus , pes planus and hammertoe deformities 1st through 5th digits appreciated. Two screws transfix an old medial malleolar fracture and a lateral plate and screws transfix an old lateral malleolar fracture which are suboptimally visualized but appears solidly unified. There is periosteal new bone along the 4th metatarsal diaphysis which may indicate prior trauma or inflammation. Joints: Mild degeneration in all interphalangeal joints seen. Soft tissues: Moderate diffuse soft tissue swelling IMPRESSION: Nondisplaced oblique fracture of the 5th metatarsal base Multiple other chronic findings as described Dictated by: Arnold Rowland M.D. on 02/27/2025 at 7:58 Approved by: Arnold Rowland M.D. on 02/27/2025 at 8:01
== END ==
LOC: RAD 12:55
PROVIDERS: Family Provider Nurse Practitioner; PCP Family Medicine; Referring Provider Family Medicine; Visit Provider Family Medicine
DX: S92.354A Nondisplaced fracture of fifth metatarsal bone, right foot, initial encounter for closed fracture (principal); M79.671 Pain in right foot; R29.6 Repeated falls; M20.11 Hallux valgus (acquired), right foot; M21.41 Flat foot [pes planus] (acquired), right foot; M20.41 Other hammer toe(s) (acquired), right foot; M19.071 Primary osteoarthritis, right ankle and foot; M79.89 Other specified soft tissue disorders
CPT/HCPCS: 73630

== ENCOUNTER 2025-03-12 15:55 | Emergency (ER) | payer MEDICARE, OTHER, SELFPAY ==
[2025-03-12 15:57] VITALS: BP 160/76; PULSE 68; RESP 18; TEMP 36.1; O2SAT 94; BMI 27.4
--- NOTE | 2025-03-12 16:09 | DI.RAD.S_ITS ---
PROCEDURE: XR CHEST 1V INDICATIONS: chest pain TECHNIQUE: One view of the chest was acquired. COMPARISON: [facility], CR, XR CHEST 1V, 10/17/2022, 20:04. [facility], CR, XR CHEST 1V, 01/22/2022, 13:51. FINDINGS: Surgical changes and devices: None. Lungs and pleura: Lungs are clear. No pleural effusions or pneumothorax. Mediastinum: Mediastinal contours appear normal. Heart size is enlarged. Bones and chest wall: No suspicious bony lesions. Overlying soft tissues appear unremarkable. IMPRESSION: No acute cardiopulmonary abnormality is seen. Dictated by: Martin Echevarria M.D. on 03/12/2025 at 16:48 Approved by: Martin Echevarria M.D. on 03/12/2025 at 16:48
--- NOTE | 2025-03-12 16:09 | EKG_ITS ---
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
[2025-03-12 16:34] LABS: Add Manual Diff / Slide Review NO; Basophils Absolute Auto 100 /uL (0-100); Basophils Percent Auto 0.7 % (0-2); Eosinophils Absolute Auto 200 /uL (0-450); Eosinophils Percent Auto 2.2 % (2-4); Hematocrit 41.6 % (36-46); Hemoglobin 14.3 g/dL (12.0-16.0); Lymphocytes Absolute Auto 800 /uL (1100-4500); Lymphocytes Percent Auto 8.7 % (25-40); Mean Corpuscular HGB Conc 34.2 % (30-36); Mean Corpuscular Hemoglobin 29.4 PG (26-34); Mean Corpuscular Volume 85.9 fL (80-100); Monocytes Absolute Auto 800 /uL (0-900); Monocytes Percent Auto 8.2 % (3-14); Neutrophils Absolute Auto 7600 /uL (1500-7000); Neutrophils Percent Auto 80.2 % (50-75); Platelet Count 439 X10^3/uL (150-400); Red Blood Cell Count 4.85 X10^6/uL (4.0-5.2); Red Cell Distribution Width 14.5 % (11.6-14.8); White Blood Cell Count 9.5 X10^3/uL (4.5-11.0)
[2025-03-12 16:39] LABS: INR 1.1 (0.9-1.3)
[2025-03-12 16:42] LABS: PTT Partial Thromboplastin Tim 41 SECONDS (25.1-36.5)
[2025-03-12 16:43] LABS: Alanine Aminotransferase 23 IU/L (<35); Albumin 4.7 g/dL (3.5-5.0); Albumin Globulin Ratio 1.7 (1.0-2.8); Alkaline Phosphatase 73 U/L (38-126); Aspartate Aminotransferase 30 IU/L (14-36); Bilirubin Total 0.8 mg/dL (0.2-1.3); Blood Urea Nitrogen 20 mg/dL (7-17); Calcium 9.9 mg/dL (8.4-10.2); Carbon Dioxide 24 mmol/L (22-32); Chloride 102 mmol/L (98-107); Creatine Kinase 85 U/L (30-135); Estimated Glomerular Filt Rate > 60 mL/min (>60); Globulin 2.7 g/dL (1.7-4.1); Glucose 131 mg/dL (70-99); Lipase 73 U/L (23-300); Magnesium 1.8 mg/dL (1.6-2.3); Potassium 4.5 mmol/L (3.4-5.1); Sodium 136 mmol/L (137-145); Total Protein 7.4 g/dL (6.3-8.2)
[2025-03-12 16:53] LABS: HEMOLYSIS 22 (0-50); NT-proBNP (BNP-Adult 18+) 386 pg/mL (<450)
[2025-03-12 16:55] LABS: Troponin I < 0.012 ng/mL (0.01-0.034)
--- NOTE | 2025-03-12 18:25 | EKG_ITS ---
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
[2025-03-12 19:05] LABS: Troponin I < 0.012 ng/mL (0.01-0.034)
--- NOTE | 2025-03-12 21:40 | PC.NURSE ---
No answer when pt called to be placed in exam room
== END 2025-03-12 22:00 | disposition left against medical advice (07) ==
PROVIDERS: Emergency Medicine; Student in an Organized Health Care Education/Training Program; Emergency Provider Emergency Medicine; Family Provider Nurse Practitioner; PCP Family Medicine
DX: R07.9 Chest pain, unspecified (principal); R55 Syncope and collapse; R07.81 Pleurodynia
CPT/HCPCS: 71045; 80053; 82550; 83690; 83735; 83880; 84484; 85025; 85610; 85730; 93005; 99281